=== PATIENT | male | born 1960 | race Caucasian/White ===

== ENCOUNTER → 2018-05-04 09:48 | Outpatient (CLI) | payer BC, SELFPAY ==
[2018-05-04 12:59] LABS: ALT 66 U/L (12-78); AST 77 U/L (15-37); Albumin 3.4 g/dL (3.4-5.0); Alkaline Phosphatase 127 U/L (46-116); Bilirubin, Direct 0.29 mg/dL (0.00-0.20); Bilirubin, Total 0.8 mg/dL (0.2-1.0); Total Protein 6.9 g/dL (6.4-8.2)
== END ==
PROVIDERS: PCP Emergency Medicine; Visit Provider Emergency Medicine
DX: K74.60 Unspecified cirrhosis of liver (principal); R18.8 Other ascites
CPT/HCPCS: 36415; 80076

== ENCOUNTER 2018-06-15 12:17 | Outpatient (CLI) | payer BC, SELFPAY ==
[2018-06-15 13:25] LABS: HCT 23.5 % (40.0-50.0); Mean Corp. HGB Concentration 29.8 g/dL (32.0-36.0); Mean Corpuscular Hemoglobin 21.8 pg (27.0-33.0); Mean Corpuscular Volume 73.2 fL (80-95); Mean Platelet Volume 10.8 fL (8.0-11.0); Platelet Count 140 x1000/uL (130-400); RBC 3.21 m/cumm (4.50-6.00); RBC Distribution Width 17.4 % (11.8-14.1); White Blood Cell Count 3.85 k/cumm (4.4-10.8)
[2018-06-15 13:54] LABS: ALT 47 U/L (12-78); AST 43 U/L (15-37); Albumin 3.3 g/dL (3.4-5.0); Alkaline Phosphatase 116 U/L (46-116); Bilirubin, Direct 0.28 mg/dL (0.00-0.20); Total Protein 6.9 g/dL (6.4-8.2)
[2018-06-15 14:17] LABS: Ferritin 9 ng/mL (8-388)
== END 2018-06-15 12:37 ==
PROVIDERS: PCP Emergency Medicine; Visit Provider Emergency Medicine
DX: D64.9 Anemia, unspecified (principal); K74.60 Unspecified cirrhosis of liver
CPT/HCPCS: 36415; 80076; 85027; 82728

== ENCOUNTER 2018-06-15 14:05 | Observation (INO) | payer BC, SELFPAY ==
[2018-06-15] VITALS (51 sets, daily range): BP systolic 108–154; BP diastolic 52–82; PULSE 62–82; RESP 14–31; TEMP 36.5–37.2; O2SAT 93–99
--- NOTE | 2018-06-15 14:15 | ED.GENADUL_ITS ---
Discharge Plan Disposition Patient Disposition: [facility] INPATIENT Condition: Stable Discharge Details Chief Complaint: GI Bleed Clinical Impression: GI bleeding Primary Care Provider: Mike Whitehead ED Provider: Pearl Moses Home Meds and New Rx's Prescriptions: No Action nadolol 20 mg tablet See Patient Comments PO DAILY RF: 0 multivitamin 1 EACH tablet 1 tab PO DAILY RF: 0 acetaminophen 325 MG tablet 1 - 2 tab PO Q4H PRN RF: 0 cetirizine 10 MG tablet 1 tab PO DAILY PRNRF: 0 aspirin 325 MG tablet 1 tab PO DAILY RF: 0 vitamin B complex 1 EACH tablet 1 tab PO DAILY RF: 0 omega-3 fatty acids-fish oil [Fish Oil] 1 EACH capsule 1 cap PO BID RF: 0 nitroglycerin 0.4 MG tablet, sublingual 1 tab Sublingual ONCE Qty: 20 RF: 3 blood sugar diagnostic [Black HouseTouch Ultra Test] 1 EACH strip 1 ea Miscellaneous DAILY Qty: 90 RF: 3 lancets [OneTouch Delica Lancets] 1 EACH misc 1 ea Miscellaneous DAILY Qty: 90 RF: 3 levothyroxine 150 MCG tablet 150 mcg PO DAILY Qty: 90 RF: 3 atorvastatin 80 MG tablet 1 tab PO DAILY Qty: 90 RF: 3 sertraline 100 MG tablet 100 mg PO DAILY Qty: 90 RF: 3 omeprazole 40 MG capsule,delayed release(DR/EC) 1 cap PO DAILY Qty: 90 RF: 3 metformin 1,000 MG tablet 1,000 mg PO BID Qty: 180 RF: 3 albuterol sulfate [ProAir HFA] 8.5 GM HFA aerosol inhaler 1 - 2 puff Inhalation Q4H PRN Qty: 2 RF: 6 furosemide 20 MG tablet 20 mg PO QAM Qty: 90 RF: 3 Medical Decision Making MDM Narrative Medical decision making narrative: Patient's blood drawn was at noon today, drop in hemoglobin from 9.1 in March to 7.0 today. Patient is symptomatic with positional lightheadedness and chest discomfort with activity. Will type and cross for 2 units of packed red blood cells and administer as soon as available. EKG obtained and reviewed. No acute ST segment changes noted. Will add troponin and basic metabolic panel to today's labs. Will obtain large bore IV. labs all reviewed troponin is negative. patient remains hemodynamically stable with no symptoms at this time. a rectal shows no stool in vault, hemocult was slightly positive for blood. His orthostatic vital signs were negative. This appears to be more of a chronic slow bleed versus an acute bleed but will need endoscopy based on his past history. transfer center at [facility] contacted and patient is declined d/t bed availability. discussed with [facility] transfer center, patient accepted under hospitalist services but bed will not be available until tomorrow. Case discussed with Dr Parson who accepts patient for observation stay pending bed at [facility]. He has received 2 units of PRBC in the emergency department prior to transfer to med/surg. Medical Records Medical records reviewed: Yes I reviewed the patient's medical records. Lab Data Lab results reviewed: Yes I reviewed the patient's lab results. HPI - General Adult General Mode of arrival: ambulatory . Date/Time Provider Initiated Documentation: 06/15/18 14:13 . Limitations to Documentation: no limitations . Information obtained by: patient, RN/MD (Dr. Whitehead), RN notes reviewed and old records reviewed . History of Present Illness described as mild, Quality is described as dull, and is localized to the chest. Patient reports no radiation. and it has been intermittent. No relieving factors improve symptom(s), No exacerbating factors reported . Patient notes chest pain (Exertional chest pressure) and other (Positional lightheadedness). Patient did receive the following treatments prior to arrival, none HPI Narrative: Patient referred to the emergency department by his primary care provider after lab today reveals a hemoglobin of 7. As a known history of portal hypertension and GI bleed. Primary care provider did contact [facility] but there are no beds available for transfer so patient was referred here. Patient had noticed over the past few days he has had some positional lightheadedness and some exertional chest pressure/burning. He states he has intermittent black tarry. Last upper endoscopy was at [facility] in February, shows esophageal varices <5 mm and portal gastropathy Related Data Home Medications Medication Instructions Recorded Confirmed acetaminophen 1 - 2 tab PO Q4H PRN 01/06/13 06/15/18 aspirin 1 tab PO DAILY 01/06/13 06/15/18 cetirizine 1 tab PO DAILY PRN 01/06/13 06/15/18 multivitamin 1 tab PO DAILY 01/06/13 06/15/18 omega-3 fatty acids-fish oil [Fish 1 cap PO BID 01/06/13 06/15/18 Oil] vitamin B complex 1 tab PO DAILY 01/06/13 06/15/18 nitroglycerin 1 tab SUBLINGUAL ONCE #20 tab 12/19/13 blood sugar diagnostic [OneTouch #90 strip 12/01/16 06/15/18 Ultra Test] lancets [OneTouch Delica Lancets] #90 ea 12/01/16 06/15/18 nadolol 20 mg tablet See Label Instructions PO DAILY 06/14/18 06/15/18 Previous Rx's Medication Instructions Recorded levothyroxine 150 mcg PO DAILY #90 tab-cap 08/17/17 albuterol sulfate [ProAir HFA] 1 - 2 puff INHALATION Q4H PRN #2 02/09/18 inhaler atorvastatin 1 tab PO DAILY #90 tab 02/09/18 metformin 1,000 mg PO BID #180 tab-cap 02/09/18 omeprazole 1 cap PO DAILY #90 tab 02/09/18 sertraline 100 mg PO DAILY #90 tab-cap 02/09/18 furosemide 20 mg tablet 20 mg PO QAM #90 tab 05/04/18 Allergies Allergy/AdvReac Type Severity Reaction Status Date / Time niacin Allergy Intermediate Rash Verified 06/15/18 14:29 hydrocodone Allergy Mild Skin Rash Verified 06/15/18 14:29 hydrochlorothiazide AdvReac Severe pancreatiti Verified 06/15/18 14:29 s amlodipine AdvReac Intermediate edema Verified 06/15/18 14:29 ramipril AdvReac Intermediate cough Verified 06/15/18 14:29 Dust Mite AdvReac Intermediate Wheezy Uncoded 06/15/18 14:29 Review of Systems Constitutional Denies fever(s) Eyes Patient Denies change in vision Cardiovascular Denies chest pain at rest, Reports chest pain with activity, Denies syncope, Denies rapid heart rate and Reports lightheadedness Respiratory Denies cough Gastrointestinal Reports heartburn, Denies diarrhea and Reports other (Black and tarry stool) Genitourinary Denies difficulty urinating Musculoskeletal Denies back pain Neurologic Denies syncope PFSH Family History Mother Diabetes Depression Asthma Father Heart disease Hyperlipidemia Brother Depression Heart disease Grandfather No problems noted. Grandfather Depression Grandmother Diabetes Heart disease Grandmother Diabetes Daughter Depression Social History Smoking/Tobacco Use Status: Never Surgical History Colonoscopy - MAC (02/11/18) EGD - MAC (02/11/18) Repair of inguinal hernia Repair of umbilical hernia (07/23/16) Stent placement (~1998) Exam Const General: cooperative, healthy appearing, comfortable, no acute distress and well developed Nutritional Appearance: well nourished Orientation: alert, awake and oriented x3 HENMT Mouth: moist mucous membranes Chest Chest: normal inspection of the chest Cardio Rate: regular rate Rhythm: regular rhythm GI Inspection: distended Palpation: soft Auscultation: normal bowel sounds Skin General skin exam: no rashes or lesions noted Neuro General: alert, awake and oriented x3 Extrem General: normal to inspection, full ROM and normal capillary refill
[2018-06-15] MEDS: diphenhydrAMINE 25 MG CAP PO (14:50)
[2018-06-15] MEDS: Acetaminophen 325 MG TAB 650 MG PO (14:51)
[2018-06-15 14:58] LABS: Anion Gap 9.1 mmol/L (3-11); BUN 13 mg/dL (7-18); CO2 26.9 mmol/L (21.0-32.0); CREATININE 0.85 mg/dL (0.70-1.30); Calcium 8.8 mg/dL (8.5-10.1); Chloride 102 mmol/L (98-107); Glucose 147 mg/dL (70-100); Potassium 3.9 mmol/L (3.5-5.1); Sodium 138 mmol/L (136-145)
[2018-06-15 15:06] LABS: Troponin I < 0.02 ng/mL (0.00-0.06)
--- NOTE | 2018-06-15 16:16 | NUR.NOTE ---
Pt denies pain with transfusion. lungs CTA. Nursing Note:
--- NOTE | 2018-06-15 17:49 | W.PM.HP.N ---
Date of service: 06/15/18 Time of Service: 17:49 Assessment and Plan (1) GI bleed: Current visit: Yes Status: Acute Baseline hemoglobin runs 8-9. Hemoglobin this morning 7. Given the drop in hemoglobin and noted dizziness he is transfused 2 units of packed red cells. Will check hemoglobin again in the a.m. There does not appear to be evidence of a brisk GI bleed but there is concern about his potential gastric antra vascular ectasia seen on upper endoscopy 02/11/2018. He has known portal hypertension and varices. This does not appear to be a variceal bleed clinically. We will continue PPI therapy. Clear liquid diet. Plan is to arrange upper endoscopy for tomorrow, likely at [facility] per discussion in the ER. (2) Diabetes type 2, controlled: Current visit: Yes Status: Chronic We will check fingerstick blood sugars, provide sliding-scale coverage. (3) Portal hypertension: Current visit: Yes Status: Acute Workup to date has been done at [facility], Karan CHRISTIANSON, Dr. Desai, will try to refer back to them once diagnostic studies are available. (4) Anemia: Current visit: Yes Status: Chronic Transfused 2 units packed red cells. Recheck hemoglobin in the a.m. (5) Discharge planning issues: Current visit: Yes Status: Acute He is a full code. Admit observation status. CC: Dr. Whitehead History of Present Illness Chief Complaint: GI bleed/symptomatic anemia Narrative: This is a 57-year-old male that presented to his primary care physician today because of ongoing problems with dizziness and weakness. He describes an episode where his eyes rolled back in his head, he nearly passed out, he went down on one knee. Dr. Whitehead checked a hemoglobin and it was low at 7.0 he referred him to the emergency room. He is recently undergone a workup for portal hypertension and gastric polyps. He had endoscopy by Dr. Moran on 02/11/2018. Both upper and lower endoscopy. He has seen SAMMY Meadows at [facility] gastroenterology. He has been undergoing iron infusions, most recently May 2018. In the emergency room initial evaluation was benign including orthostatic blood pressures which were normal, EKG was normal, troponin was negative. Given the report of symptomatic anemia he was transfused 2 units of packed red cells. Dr. Nelson was consulted regarding upper endoscopy, she declined given his known esophageal varices. Referral was made to [facility] but they had no beds, referral was made to [facility] and they agreed to consider him for endoscopy tomorrow. He is admitted to observation with transfer to [facility] tomorrow. Review of Systems Constitutional Denies excessive sweating, Reports fatigue and Denies weight loss ENT Reports dizziness Cardiovascular Denies chest pain at rest, Denies chest pain with activity, Reports lightheadedness and Reports dyspnea on exertion Respiratory Reports dyspnea on exertion Gastrointestinal Denies abdominal pain and Denies coffee ground emesis Comments: He states he saw a slight amount of blood with wiping in the last 24 hours denies any hematochezia. Musculoskeletal Reports system reviewed and no additional complaints, except as docu Neurologic Reports dizziness Psychiatric Reports system reviewed and no additional complaints, except as docu Endocrine Denies excessive sweating and Reports fatigue PFSH Family History Mother Diabetes Depression Asthma Father Heart disease Hyperlipidemia Brother Depression Heart disease Grandfather No problems noted. Grandfather Depression Grandmother Diabetes Heart disease Grandmother Diabetes Daughter Depression Social History Smoking/Tobacco Use Status: Never Surgical History Colonoscopy - MAC (02/11/18) EGD - MAC (02/11/18) Repair of inguinal hernia Repair of umbilical hernia (07/23/16) Stent placement (~1998) Meds Home Medications Medication Instructions Recorded Confirmed Type acetaminophen 1 - 2 tab PO Q4H PRN 01/06/13 06/15/18 History aspirin 1 tab PO DAILY 01/06/13 06/15/18 History cetirizine 1 tab PO DAILY PRN 01/06/13 06/15/18 History multivitamin 1 tab PO DAILY 01/06/13 06/15/18 History omega-3 fatty acids-fish oil [Fish 1 cap PO BID 01/06/13 06/15/18 History Oil] vitamin B complex 1 tab PO DAILY 01/06/13 06/15/18 History nitroglycerin 1 tab SUBLINGUAL ONCE #20 tab 12/19/13 History blood sugar diagnostic [OneTouch #90 strip 12/01/16 06/15/18 History Ultra Test] lancets [OneTouch Delica Lancets] #90 ea 12/01/16 06/15/18 History nadolol 20 mg tablet See Label Instructions PO DAILY 06/14/18 06/15/18 History Allergies Allergy/AdvReac Type Severity Reaction Status Date / Time niacin Allergy Intermediate Rash Verified 06/15/18 14:29 hydrocodone Allergy Mild Skin Rash Verified 06/15/18 14:29 hydrochlorothiazide AdvReac Severe pancreatiti Verified 06/15/18 14:29 s amlodipine AdvReac Intermediate edema Verified 06/15/18 14:29 ramipril AdvReac Intermediate cough Verified 06/15/18 14:29 Dust Mite AdvReac Intermediate Wheezy Uncoded 06/15/18 14:29 Exam Narrative Exam Narrative: Healthy-appearing, moderately obese male. Const General: comfortable and no acute distress Nutritional Appearance: overweight Neck Neck: normal visual inspection Chest Chest: normal inspection of the chest Resp Effort & Inspection: normal respiratory effort Auscultation: clear to auscultation bilaterally Cardio Rate: regular rate Rhythm: regular rhythm Heart Sounds: no murmurs GI Palpation: soft, no hepatosplenomegaly and nontender Rectal Exam: deferred Other: Stool in the emergency room heme positive Skin General skin exam: no rashes or lesions noted Neuro General: alert, awake and moves all extremities Extrem General: pedal edema (Bilateral lower extremity edema 1+) bilaterally Psych Appearance: grossly normal Mental Status: mental status grossly normal Results Labs : 06/15/18 14:30 Laboratory Results - last 24 hr 06/15/18 06/15/18 06/15/18 14:30 14:30 14:30 Sodium 138 Potassium 3.9 Chloride 102 Carbon Dioxide 26.9 Anion Gap 9.1 BUN 13 Creatinine 0.85 Estimated GFR/1.73 m2 >= 60.00 Glucose 147 H Calcium 8.8 Troponin I < 0.02 Patient ABO/Rh A Positive Antibody Screen Negative Crossmatch See Detail
--- NOTE | 2018-06-15 17:52 | NUR.NOTE ---
Nursing Note: 1750 Male pt 57 years old alert,aware,oriented x 3 arrived via stretcher with second unit of PRBC running from ED ,,denies any discomfort /no sob to room 211
[2018-06-15] MEDS: Normal Saline Flush 10 ML SYR IVP (19:27)
[2018-06-16 04:27] VITALS: BP 128/77; PULSE 63; RESP 18; TEMP 36.2; O2SAT 97
[2018-06-16 06:35] LABS: Abs Immature Grans 0.01 k/cumm (0.0-0.09); Absolute Basophil Count 0.02 k/cumm (0.0-0.2); Absolute Eosinophil Count 0.14 k/cumm (0.0-0.7); Absolute Lymphocyte Count 0.92 k/cumm (1.2-3.4); Absolute Monocyte Count 0.31 k/cumm (0.11-0.7); Absolute Neutrophil Count 1.88 k/cumm (1.2-6.7); Basophils % 0.6; Eosinophils % 4.3; HCT 27.1 % (40.0-50.0); HGB 8.2 g/dL (13.5-17.5); Immature Grans % 0.3; Mean Corp. HGB Concentration 30.3 g/dL (32.0-36.0); Mean Corpuscular Hemoglobin 22.6 pg (27.0-33.0); Mean Corpuscular Volume 74.7 fL (80-95); Mean Platelet Volume 10.6 fL (8.0-11.0); Monocytes % 9.5; Neutrophils % 57.3; Platelet Count 134 x1000/uL (130-400); RBC 3.63 m/cumm (4.50-6.00); RBC Distribution Width 18.6 % (11.8-14.1); White Blood Cell Count 3.28 k/cumm (4.4-10.8)
[2018-06-16 06:45] LABS: Anion Gap 8.4 mmol/L (3-11); BUN 12 mg/dL (7-18); CO2 27.6 mmol/L (21.0-32.0); CREATININE 0.76 mg/dL (0.70-1.30); Calcium 8.4 mg/dL (8.5-10.1); Chloride 105 mmol/L (98-107); Glucose 112 mg/dL (70-100); Potassium 3.9 mmol/L (3.5-5.1); Sodium 141 mmol/L (136-145)
[2018-06-16 07:10] LABS: INR 1.2 (1.0-3.5); PTT Activated 27.6 sec (21.0-31.4); Prothrombin Time 11.5 sec (9.3-10.8)
[2018-06-16] MEDS: Levothyroxine 150 MCG TAB PO (07:19)
[2018-06-16 07:23] LABS: Anisocytosis 2+; Diff Comment RBC Morph Reviewed; Hypochromasia 1+; Macrocytosis 1+; Microcytosis 2+; Ovalocytes 2+; Schistocytes 1+
[2018-06-16 07:24] LABS: Poikilocytes 2+
[2018-06-16 07:59] VITALS: BP 125/78; PULSE 56; RESP 19; TEMP 36.3; O2SAT 96
--- NOTE | 2018-06-16 08:09 | PDOC.CMIN ---
- If Service Date Differs Date of service: 06/16/18 Time of Service: 08:09 Care Management Initial Assess REASON FOR HOSPITALIZATION:: GI bleed PAST MEDICAL HISTORY/PAST SURGICAL HISTORY:: Portal hypertension, ARIN, DM, hyperlipidemia, HTN, portal hypertension, CAD, anemia, hypothyroid. Surgical hx: stent placement, hernia repair, EGD, colonoscopy PREVIOUS FUNCTIONAL STATUS/SOCIAL/FAMILY SUPPORTS:: Adriano is a 57 year old male that lives alone in [place], [place]. He is an plumbing engineer, at [email or web address] in [place], He has one daughter Kenna who is his primary support and three grandchildren. He is seperated from his spouse. He is independent with ADL's, and transportation. He provides support to his daughter with her children and his grandson who is disabled. CURRENT FUNCTIONAL STATUS:: Adriano is sitting up in the chair he makes good eye contact. He states that he was going to drive to [facility] however there was not a bed available so he was sent to [facility] by primary care. He states his only symptom of anemia was dizzyness when he stood up or sat down. He does report some chest buring about a week ago when he was walking. He would like to be transfered to [facility] when there is a bed. ADVANCE DIRECTIVES:: None on file at [facility]- Pt provided the packet to review Has patient been provided with information about the portal?: Yes Did the patient sign up for the portal?: No (Provided instruction) CODE STATUS:: Full Code INSURANCE COVERAGE / FINANCIAL ISSUES:: BCBS CURRENT HOME/COMMUNITY SERVICES/EQUIPMENT:: None PRIMARY CARE PHYSICIAN:: POTENTIAL DISCHARGE NEEDS:: Anticipate Adriano will be transfered to [facility] once a bed is available. He will need to follow up with whom he has a good relationship with after discharge. PATIENT/FAMILY EDUCATION NEEDS:: Education r/t plan of care and follow up plan of care. ANTICIPATED BARRIERS TO DISCHARGE:: Awaiting bed availability at [facility]. TRANSPORTATION:: Via ambulance once bed is available. Adriano's car is here at [facility] as he did drive himself to the hospital. PLAN:: Adriano remains an observation pt at [facility]. Anticipate he will be transfered to another facility. His daughter is aware of the pending transfer. Adriano denies any addtional needs at this time. He would like to review infomation related to advance directives and my portal. CM provided information and advance directive packet.
--- NOTE | 2018-06-16 08:19 | INITIAL_ITS ---
- If Service Date Differs Date of service: 06/16/18 Time of Service: 08:09 Care Management Initial Assess REASON FOR HOSPITALIZATION:: GI bleed PAST MEDICAL HISTORY/PAST SURGICAL HISTORY:: Portal hypertension, ARIN, DM, hyperlipidemia, HTN, portal hypertension, CAD, anemia, hypothyroid. Surgical hx : stent placement, hernia repair, EGD, colonoscopy PREVIOUS FUNCTIONAL STATUS/SOCIAL/FAMILY SUPPORTS:: Adriano is a 57 year old male that lives alone in [place], [place]. He is an software deployment engineer, at [employer] in [place], He has one daughter Kenna who is his primary support and three grandchildren. He is seperated from his spouse. He is independent with ADL 's, and transportation. He provides support to his daughter with her children and his grandson who is disabled. CURRENT FUNCTIONAL STATUS:: Adriano is sitting up in the chair he makes good eye contact. He states that he was going to drive to [facility] however there was not a bed available so he was sent to [facility] by primary care. He states his only symptom of anemia was dizzyness when he stood up or sat down. He does report some chest buring about a week ago when he was walking. He would like to be transfered to [facility] when there is a bed. ADVANCE DIRECTIVES:: None on file at [facility]- Pt provided the packet to review Has patient been provided with information about the portal?: Yes Did the patient sign up for the portal?: No (Provided instruction) CODE STATUS:: Full Code INSURANCE COVERAGE / FINANCIAL ISSUES:: BCBS CURRENT HOME/COMMUNITY SERVICES/EQUIPMENT:: None PRIMARY CARE PHYSICIAN:: POTENTIAL DISCHARGE NEEDS:: Anticipate Adriano will be transfered to [facility] once a bed is available. He will need to follow up with whom he has a good relationship with after discharge. PATIENT/FAMILY EDUCATION NEEDS:: Education r/t plan of care and follow up plan of care. ANTICIPATED BARRIERS TO DISCHARGE:: Awaiting bed availability at [facility]. TRANSPORTATION:: Via ambulance once bed is available. Adriano's car is here at [facility] as he did drive himself to the hospital. PLAN:: Adriano remains an observation pt at [facility]. Anticipate he will be transfered to another facility. His daughter is aware of the pending transfer. Adriano denies any addtional needs at this time. He would like to review infomation related to advance directives and my portal. CM provided information and advance directive packet.
[2018-06-16] MEDS: Normal Saline Flush 10 ML SYR IVP (08:22)
[2018-06-16] MEDS: Omeprazole 20 MG CAPCR 40 MG PO (08:23)
[2018-06-16] MEDS: Sertraline 50 MG TAB 100 MG PO (08:23)
[2018-06-16] MEDS: Normal Saline 1,000 ML 125 ML IV (08:24)
[2018-06-16 11:34] VITALS: BP 138/86; PULSE 60; RESP 20; TEMP 36.9; O2SAT 96
[2018-06-16] MEDS: Nadolol 40 MG TAB 20 MG PO (12:45)
[2018-06-16] MEDS: IRON SUCROSE COMPLEX 200 MG in Normal Saline 100 ML 110 MG IVPB (14:10)
--- NOTE | 2018-06-16 14:36 | PHARADMIT ---
Admission Pharmacy Clinical Review GI BLEED Code Status Full Code Current Weight 121.9 kg Renally Cleared and Narrow Therapeutic Index Meds CRCL ~100ML/MIN QTc Value / Action Taken BP Control, Fever 138/86 AFEBRILE Electrolytes reviewed ok DVT Prophylaxis no Opiate Usage / Scheduled Bowel Regimen Ordered no/no Plt/SCr for Heparin / Enoxaparin 134/0.76 INR for Warfarin 1.2 H/H stable, WBC/Bands 8.2/27.1 (after transfusion) wbc 3.28 Antibiotic appropriateness na Cultures and Sensitivities na Surgical ABX d/c within 24 hr na DM control / Insulin Dosing FS 113, metformin Heart Failure (Check EF%) (ROBERT's, B-Block, Diuretics) IV to PO Switch IVF Home Meds Reviewed Home Meds Not Ordered aspirin 1 tab PO DAILY 01/06/13 [History Confirmed 06/15/18] multivitamin 1 tab PO DAILY 01/06/13 [History Confirmed 06/15/18] omega-3 fatty acids-fish oil [Fish Oil] 1 cap PO BID 01/06/13 vitamin B complex 1 tab PO DAILY 01/06/13 [History Confirmed 06/15/18] Comments
--- NOTE | 2018-06-16 15:23 | W.PM.DS.N ---
Date of service: 06/16/18 Time of Service: 15:23 DS: Diagnosis Discharge Diagnosis (1) GI bleed: Status: Acute (2) Diabetes type 2, controlled: Status: Chronic (3) Portal hypertension: Status: Acute (4) Anemia: Status: Chronic (5) Discharge planning issues: Status: Acute Discharge Plan Disposition Patient Disposition: HOME Condition: Stable Discharge Details Reason For Visit: GI BLEED Admit Date/Time: 06/15/18 16:55 Admit Provider: Joe Parson Attending Provider: Joe Parson Primary Care Provider: Mike Whitehead [place] [facility] Course: Theodore Mc is a 57-year-old male that presented to his primary care physician yesterday with reports of ongoing problems with dizziness and weakness. He describes an episode where his eyes rolled back in his head, he nearly passed out, he went down on one knee. Dr. Whitehead checked a hemoglobin and it was low at 7.0 he referred him to the emergency room. He is recently undergone a workup for portal hypertension and gastric polyps. He had upper and lower endoscopy by Dr. Moran on 02/11/2018. He had a follow up EGD at [facility] which did not show GAVE, they noted chronic blood loss as he has portal hypertension gastropathy. He has seen SAMMY Meadows at [facility] gastroenterology. He has been undergoing iron infusions, most recently May 2018. In the emergency room initial evaluation was benign including orthostatic blood pressures which were normal, EKG was normal, troponin was negative. Given the report of symptomatic anemia he was transfused 2 units of packed red cells. Dr. Nelson was consulted regarding upper endoscopy, she declined given his known esophageal varices. Referral was made to [facility] but they had no beds, referral was made to [facility] and they agreed to consider him for endoscopy. However, we were able to speak to GI at [facility] today, where his is followed. GI did not feel that there was any utility to doing another EGD as they were already aware that he was chronically bleeding and has been receiving supportive treatments. They recommended that he continue with Venofer infusions, maximize Nadolol dosing, monitor blood counts with transfusions as needed. He had only received one venofer infusion prior to his admission. He did receive another Iron infusion while he was here in the hospital. He should continue to receive IV Iron as an outpatient. At the time of his discharge, his hgb had improved to 8.2 and hct to 27.1. He will need close follow up of his anemia. We will plan to have a Hemoglobin and hematocrit drawn early next week. He will follow up with GI and with his PCP. He is adivsed to return to the ED if her has recurrence of symptoms. Home Meds and New Rx's Prescriptions: Continue nadolol 20 mg tablet See Patient Comments PO DAILY RF: 0 multivitamin 1 EACH tablet 1 tab PO DAILY RF: 0 acetaminophen 325 MG tablet 1 - 2 tab PO Q4H PRN RF: 0 cetirizine 10 MG tablet 1 tab PO DAILY PRNRF: 0 aspirin 325 MG tablet 1 tab PO DAILY RF: 0 vitamin B complex 1 EACH tablet 1 tab PO DAILY RF: 0 omega-3 fatty acids-fish oil [Fish Oil] 1 EACH capsule 1 cap PO BID RF: 0 nitroglycerin 0.4 MG tablet, sublingual 1 tab Sublingual ONCE Qty: 20 RF: 3 blood sugar diagnostic [OneTouch Ultra Test] 1 EACH strip 1 ea Miscellaneous DAILY Qty: 90 RF: 3 lancets [OneTouch Delica Lancets] 1 EACH misc 1 ea Miscellaneous DAILY Qty: 90 RF: 3 levothyroxine 150 MCG tablet 150 mcg PO DAILY Qty: 90 RF: 3 atorvastatin 80 MG tablet 1 tab PO DAILY Qty: 90 RF: 3 sertraline 100 MG tablet 100 mg PO DAILY Qty: 90 RF: 3 omeprazole 40 MG capsule,delayed release(DR/EC) 1 cap PO DAILY Qty: 90 RF: 3 metformin 1,000 MG tablet 1,000 mg PO BID Qty: 180 RF: 3 albuterol sulfate [ProAir HFA] 8.5 GM HFA aerosol inhaler 1 - 2 puff Inhalation Q4H PRN Qty: 2 RF: 6 furosemide 20 MG tablet 20 mg PO QAM Qty: 90 RF: 3 Discharge Instructions Instructions: Gastrointestinal Bleeding (DC), Portal Hypertension (DC), Anemia (DC) Additional Instructions: The infusion room will call you tomorrow to set up an appointment for your next iron infusion. Follow up with your PCP and with GI at [facility]. If you feel dizzy, lightheaded, or faint, return to the ED. You will need to have labs drawn next week, Wednesday to recheck your blood counts. Stand Alone Forms: Nursing Discharge Form Referrals: Mike Whitehead DO [Primary Care Provider] - 06/17/18 4:00 pm Karan Landrum [ [facility] STAFF PHYSICIAN] - 06/20/18 2:30 pm Activity:: Activity as Tolerated Equipment/Supplies:: No Equipment Needed Diet:: Carbohydrate counting. Discharge Orders Discharge Orders: Discharge Order (Routine); Ordered 06/16/18 Ordered By: Abbie Ward DS: Data Vitals/I&O Vitals and I&O: Vital Signs Temp 36.9 C 06/16/18 11:34 Pulse 60 06/16/18 11:34 Resp 20 06/16/18 11:34 BP 138/86 06/16/18 11:34 Pulse Ox 96 06/16/18 11:34 Intake & Output 06/15/18 06/16/18 06/16/18 23:59 11:59 23:59 Intake Total 745 / 745 640 / 640 Output Total 450 / 450 500 / 500 300 / 300 Balance 295 / 295 -490 / -490 340 / 340 Weight 121.9 kg Intake: IV Oral 0 / 0 640 / 640 Blood Product 745 / 745 Rbc Leuko Reduced Unit 365 / 365 [id number] Rbc Leuko Reduced Unit 380 / 380 [id number] Output: Urine 450 / 450 500 / 500 300 / 300 Other: Urine Color Yellow Dark Isaura Yellow Urine Appearance Clear Clear Clear Urine Odor None Normal Normal Comment pt walked to toilet but used the urinal to void. Stool Occult Blood Positive Stool Size Smear Emesis Description None Voiding Methods Urinal Urinal Toilet Urinal Labs on day of discharge: Labs from last 24 hours 06/16/18 06/16/18 06/16/18 06:20 06:20 06:20 WBC 3.28 L RBC 3.63 L Hgb 8.2 L Hct 27.1 L MCV 74.7 L MCH 22.6 L MCHC 30.3 L RDW 18.6 H Plt Count 134 MPV 10.6 Immature Gran % 0.3 Neutrophils % 57.3 Lymphocytes % 28.0 Monocytes % 9.5 Eosinophils % 4.3 Basophils % 0.6 Absolute Neutrophils 1.88 Absolute Lymphocytes 0.92 L Absolute Monocytes 0.31 Absolute Eosinophils 0.14 Absolute Basophils 0.02 Differential Comment Rbc morph reviewed RBC Morphology See below Hypochromasia 1+ Poikilocytosis 2+ Anisocytosis 2+ Microcytosis 2+ Macrocytosis 1+ Ovalocytes 2+ Schistocytes 1+ PT 11.5 H INR 1.2 APTT 27.6 Sodium 141 Potassium 3.9 Chloride 105 Carbon Dioxide 27.6 Anion Gap 8.4 BUN 12 Creatinine 0.76 Estimated GFR/1.73 m2 >= 60.00 Glucose 112 H Calcium 8.4 L Patient ABO/Rh Antibody Screen Crossmatch 06/15/18 14:30 WBC RBC Hgb Hct MCV MCH MCHC RDW Plt Count MPV Immature Gran % Neutrophils % Lymphocytes % Monocytes % Eosinophils % Basophils % Absolute Neutrophils Absolute Lymphocytes Absolute Monocytes Absolute Eosinophils Absolute Basophils Differential Comment RBC Morphology Hypochromasia Poikilocytosis Anisocytosis Microcytosis Macrocytosis Ovalocytes Schistocytes PT INR APTT Sodium Potassium Chloride Carbon Dioxide Anion Gap BUN Creatinine Estimated GFR/1.73 m2 Glucose Calcium Patient ABO/Rh A Positive Antibody Screen Negative Crossmatch See Detail
--- NOTE | 2018-06-16 15:32 | DSE_ITS ---
Date of service: 06/16/18 Time of Service: 15:23 DS: Diagnosis Discharge Diagnosis (1) GI bleed: Status: Acute (2) Diabetes type 2, controlled: Status: Chronic (3) Portal hypertension: Status: Acute (4) Anemia: Status: Chronic (5) Discharge planning issues: Status: Acute Discharge Plan Disposition Patient Disposition: HOME Condition: Stable Discharge Details Reason For Visit: GI BLEED Admit Date/Time: 06/15/18 16:55 Admit Provider: Joe Parson Attending Provider: Joe Parson Primary Care Provider: Mike Whitehead [facility] Course: Theodore Mc is a 57-year-old male that presented to his primary care physician yesterday with reports of ongoing problems with dizziness and weakness. He describes an episode where his eyes rolled back in his head, he nearly passed out, he went down on one knee. Dr. Whitehead checked a hemoglobin and it was low at 7.0 he referred him to the emergency room. He is recently undergone a workup for portal hypertension and gastric polyps. He had upper and lower endoscopy by Dr. Moran on 02/11/2018. He had a follow up E[place] [facility] which did not show GAVE, they noted chronic blood loss as he has portal hypertension gastropathy. He has seen SAMMY Meadows at [facility] gastroenterology. He has been undergoing iron infusions, most recently May 2018. In the emergency room initial evaluation was benign including orthostatic blood pressures which were normal, EKG was normal, troponin was negative. Given the report of symptomatic anemia he was transfused 2 units of packed red cells. Dr. Nelson was consulted regarding upper endoscopy, she declined given his known esophageal varices. Referral was made to [facility] but they had no beds, referral was made to [facility] and they agreed to consider him for endoscopy. However , we were able to speak to GI at [facility] today, where his is followed. GI did not feel that there was any utility to doing another EGD as they were already aware that he was chronically bleeding and has been receiving supportive treatments. They recommended that he continue with Venofer infusions, maximize Nadolol dosing, monitor blood counts with transfusions as needed. He had only received one venofer infusion prior to his admission. He did receive another Iron infusion while he was here in the hospital. He should continue to receive IV Iron as an outpatient. At the time of his discharge, his hgb had improved to 8.2 and hct to 27.1. He will need close follow up of his anemia. We will plan to have a Hemoglobin and hematocrit drawn early next week. He will follow up with GI and with his PCP. He is adivsed to return to the ED if her has recurrence of symptoms. Home Meds and New Rx's Prescriptions: Continue nadolol 20 mg tablet See Patient Comments PO DAILY RF: 0 multivitamin 1 EACH tablet 1 tab PO DAILY RF: 0 acetaminophen 325 MG tablet 1 - 2 tab PO Q4H PRN RF: 0 cetirizine 10 MG tablet 1 tab PO DAILY PRNRF: 0 aspirin 325 MG tablet 1 tab PO DAILY RF: 0 vitamin B complex 1 EACH tablet 1 tab PO DAILY RF: 0 omega-3 fatty acids-fish oil [Fish Oil] 1 EACH capsule 1 cap PO BID RF: 0 nitroglycerin 0.4 MG tablet, sublingual 1 tab Sublingual ONCE Qty: 20 RF: 3 blood sugar diagnostic [OneTouch Ultra Test] 1 EACH strip 1 ea Miscellaneous DAILY Qty: 90 RF: 3 lancets [OneTouch Delica Lancets] 1 EACH misc 1 ea Miscellaneous DAILY Qty: 90 RF: 3 levothyroxine 150 MCG tablet 150 mcg PO DAILY Qty: 90 RF: 3 atorvastatin 80 MG tablet 1 tab PO DAILY Qty: 90 RF: 3 sertraline 100 MG tablet 100 mg PO DAILY Qty: 90 RF: 3 omeprazole 40 MG capsule,delayed release(DR/EC) 1 cap PO DAILY Qty: 90 RF: 3 metformin 1,000 MG tablet 1,000 mg PO BID Qty: 180 RF: 3 albuterol sulfate [ProAir HFA] 8.5 GM HFA aerosol inhaler 1 - 2 puff Inhalation Q4H PRN Qty: 2 RF: 6 furosemide 20 MG tablet 20 mg PO QAM Qty: 90 RF: 3 Discharge Instructions Instructions: Gastrointestinal Bleeding (DC), Portal Hypertension (DC), Anemia (DC) Additional Instructions: The infusion room will call you tomorrow to set up an appointment for your next iron infusion. Follow up with your PCP and with GI at [facility]. If you feel dizzy, lightheaded, or faint, return to the ED. You will need to have labs drawn next week, Wednesday to recheck your blood counts. Stand Alone Forms: Nursing Discharge Form Referrals: Mike Whitehead DO [Primary Care Provider] - 06/17/18 4:00 pm Karan Landrum [ NON-[facility] STAFF PHYSICIAN] - 06/20/18 2:30 pm Activity:: Activity as Tolerated Equipment/Supplies:: No Equipment Needed Diet:: Carbohydrate counting. Discharge Orders Discharge Orders: Discharge Order (Routine); Ordered 06/16/18 Ordered By: Abbie Ward DS: Data Vitals/I&O Vitals and I&O: Vital Signs Temp 36.9 C 06/16/18 11:34 Pulse 60 06/16/18 11:34 Resp 20 06/16/18 11:34 BP 138/86 06/16/18 11:34 Pulse Ox 96 06/16/18 11:34 Intake & Output 06/15/18 06/16/18 06/16/18 23:59 11:59 23:59 Intake Total 745 / 745 640 / 640 Output Total 450 / 450 500 / 500 300 / 300 Balance 295 / 295 -490 / -490 340 / 340 Weight 121.9 kg Intake: IV Oral 0 / 0 640 / 640 Blood Product 745 / 745 Rbc Leuko Reduced Unit 365 / 365 [id number] Rbc Leuko Reduced Unit 380 / 380 [id number] Output: Urine 450 / 450 500 / 500 300 / 300 Other: Urine Color Yellow Dark Isaura Yellow Urine Appearance Clear Clear Clear Urine Odor None Normal Normal Comment pt walked to toilet but used the urinal to void. Stool Occult Blood Positive Stool Size Smear Emesis Description None Voiding Methods Urinal Urinal Toilet Urinal Labs on day of discharge: Labs from last 24 hours 06/16/18 06/16/18 06/16/18 06:20 06:20 06:20 WBC 3.28 L RBC 3.63 L Hgb 8.2 L Hct 27.1 L MCV 74.7 L MCH 22.6 L MCHC 30.3 L RDW 18.6 H Plt Count 134 MPV 10.6 Immature Gran % 0.3 Neutrophils % 57.3 Lymphocytes % 28.0 Monocytes % 9.5 Eosinophils % 4.3 Basophils % 0.6 Absolute Neutrophils 1.88 Absolute Lymphocytes 0.92 L Absolute Monocytes 0.31 Absolute Eosinophils 0.14 Absolute Basophils 0.02 Differential Comment Rbc morph reviewed RBC Morphology See below Hypochromasia 1+ Poikilocytosis 2+ Anisocytosis 2+ Microcytosis 2+ Macrocytosis 1+ Ovalocytes 2+ Schistocytes 1+ PT 11.5 H INR 1.2 APTT 27.6 Sodium 141 Potassium 3.9 Chloride 105 Carbon Dioxide 27.6 Anion Gap 8.4 BUN 12 Creatinine 0.76 Estimated GFR/1.73 m2 >= 60.00 Glucose 112 H Calcium 8.4 L Patient ABO/Rh Antibody Screen Crossmatch 06/15/18 14:30 WBC RBC Hgb Hct MCV MCH MCHC RDW Plt Count MPV Immature Gran % Neutrophils % Lymphocytes % Monocytes % Eosinophils % Basophils % Absolute Neutrophils Absolute Lymphocytes Absolute Monocytes Absolute Eosinophils Absolute Basophils Differential Comment RBC Morphology Hypochromasia Poikilocytosis Anisocytosis Microcytosis Macrocytosis Ovalocytes Schistocytes PT INR APTT Sodium Potassium Chloride Carbon Dioxide Anion Gap BUN Creatinine Estimated GFR/1.73 m2 Glucose Calcium Patient ABO/Rh A Positive Antibody Screen Negative Crossmatch See Detail
== END 2018-06-16 16:31 | disposition home or self-care (01) ==
LOC: ER 17:31 → MS 18:03
PROVIDERS: Admitting Provider Family Medicine; Emergency Provider Nurse Practitioner Acute Care; PCP Emergency Medicine; Visit Provider Family Medicine
DX: K92.2 Gastrointestinal hemorrhage, unspecified (principal); E11.9 Type 2 diabetes mellitus without complications; K76.6 Portal hypertension; K31.89 Other diseases of stomach and duodenum; D50.0 Iron deficiency anemia secondary to blood loss (chronic); I85.00 Esophageal varices without bleeding
CPT/HCPCS: 36415; 36430; 80048; 86850; 86900; 86901; 86920; 99219; 99239; 99285; 84484; 85025; 85610; 85730; 99217; 99284; G0378; J1756; P9016

== ENCOUNTER 2018-06-20 11:47 | Outpatient (CLI) | payer BC, SELFPAY ==
[2018-06-20 12:14] LABS: HCT 29.1 % (40.0-50.0); HGB 8.9 g/dL (13.5-17.5)
== END 2018-06-20 12:07 ==
PROVIDERS: PCP Emergency Medicine; Visit Provider Nurse Practitioner
DX: K92.2 Gastrointestinal hemorrhage, unspecified (principal); D64.9 Anemia, unspecified
CPT/HCPCS: 36415; 85014; 85018

== ENCOUNTER 2018-06-24 15:25 | Outpatient (CLI) | payer BC, SELFPAY ==
[2018-06-24 15:51] LABS: HCT 28.7 % (40.0-50.0); HGB 8.8 g/dL (13.5-17.5); Mean Corp. HGB Concentration 30.7 g/dL (32.0-36.0); Mean Corpuscular Hemoglobin 23.6 pg (27.0-33.0); Mean Corpuscular Volume 76.9 fL (80-95); Mean Platelet Volume 10.4 fL (8.0-11.0); Platelet Count 147 x1000/uL (130-400); RBC 3.73 m/cumm (4.50-6.00); RBC Distribution Width 21.5 % (11.8-14.1); White Blood Cell Count 4.29 k/cumm (4.4-10.8)
[2018-06-24 17:02] LABS: ALT 65 U/L (12-78); AST 71 U/L (15-37); Albumin 3.4 g/dL (3.4-5.0); Alkaline Phosphatase 118 U/L (46-116); Bilirubin, Direct 0.28 mg/dL (0.00-0.20); Bilirubin, Total 0.9 mg/dL (0.2-1.0); Total Protein 6.7 g/dL (6.4-8.2)
[2018-06-24 17:59] LABS: Ferritin 54 ng/mL (8-388)
== END 2018-06-24 15:45 ==
PROVIDERS: PCP Emergency Medicine; Visit Provider Emergency Medicine
DX: D64.9 Anemia, unspecified (principal); K74.60 Unspecified cirrhosis of liver
CPT/HCPCS: 36415; 80076; 85027; 82728

== ENCOUNTER 2018-06-29 01:40 | Outpatient (RCR) | payer BC, SELFPAY ==
[2018-06-29] MEDS: IRON SUCROSE COMPLEX 200 MG in Normal Saline 100 ML 110 MG IVPB (07:23)
[2018-06-29] MEDS: Normal Saline Flush 10 ML SYR IVP (07:27)
== END 2018-07-03 23:59 | disposition home or self-care (01) ==
LOC: INF 01:40
PROVIDERS: PCP Emergency Medicine; Visit Provider Nurse Practitioner
DX: D50.0 Iron deficiency anemia secondary to blood loss (chronic) (principal)
CPT/HCPCS: 96365; J1756

== ENCOUNTER 2018-07-06 15:46 | Outpatient (CLI) | payer BC, SELFPAY ==
[2018-07-06 16:26] LABS: Abs Immature Grans 0.01 k/cumm (0.0-0.09); Absolute Basophil Count 0.04 k/cumm (0.0-0.2); Absolute Eosinophil Count 0.15 k/cumm (0.0-0.7); Absolute Lymphocyte Count 0.92 k/cumm (1.2-3.4); Absolute Monocyte Count 0.35 k/cumm (0.11-0.7); Basophils % 0.9; Eosinophils % 3.5; HCT 30.2 % (40.0-50.0); HGB 9.4 g/dL (13.5-17.5); Immature Grans % 0.2; Lymphocytes % 21.6; Mean Corp. HGB Concentration 31.1 g/dL (32.0-36.0); Mean Corpuscular Hemoglobin 24.4 pg (27.0-33.0); Mean Corpuscular Volume 78.2 fL (80-95); Mean Platelet Volume 10.1 fL (8.0-11.0); Monocytes % 8.2; Neutrophils % 65.6; Platelet Count 140 x1000/uL (130-400); RBC 3.86 m/cumm (4.50-6.00); RBC Distribution Width 23.7 % (11.8-14.1); White Blood Cell Count 4.25 k/cumm (4.4-10.8)
[2018-07-06 17:20] LABS: Absolute Neutrophil Count 2.79 k/cumm (1.2-6.7); Diff Comment Diff Reviewed
[2018-07-06 17:21] LABS: Anisocytosis 1+; Iron 28 ug/dL (50-175); Total Iron Binding Capacity 421 ug/dL (250-450); Transferrin Sat 7 % (20-55)
[2018-07-06 17:29] LABS: ALT 59 U/L (12-78); AST 55 U/L (15-37); Albumin 3.5 g/dL (3.4-5.0); Alkaline Phosphatase 129 U/L (46-116); Anion Gap 7.1 mmol/L (3-11); BUN 13 mg/dL (7-18); CO2 26.9 mmol/L (21.0-32.0); CREATININE 0.93 mg/dL (0.70-1.30); Calcium 8.5 mg/dL (8.5-10.1); Chloride 103 mmol/L (98-107); Ferritin 76 ng/mL (8-388); Glucose 115 mg/dL (70-100); Potassium 3.9 mmol/L (3.5-5.1); Sodium 137 mmol/L (136-145); Total Protein 7.1 g/dL (6.4-8.2)
== END 2018-07-06 16:06 ==
PROVIDERS: PCP Emergency Medicine; Visit Provider Emergency Medicine
DX: E11.9 Type 2 diabetes mellitus without complications (principal)
CPT/HCPCS: 36415; 80053; 82728; 83036; 83540; 83550; 85025

== ENCOUNTER 2018-08-10 07:00 | Outpatient (CLI) | payer BC, SELFPAY ==
[2018-08-10 07:46] LABS: Hemoglobin A1C 5.8 % (4.5-6.2)
[2018-08-10 08:18] LABS: ALT 53 U/L (12-78); AST 43 U/L (15-37); Albumin 3.5 g/dL (3.4-5.0); Alkaline Phosphatase 110 U/L (46-116); Anion Gap 8.1 mmol/L (3-11); BUN 14 mg/dL (7-18); Bilirubin, Total 0.8 mg/dL (0.2-1.0); CO2 27.9 mmol/L (21.0-32.0); CREATININE 0.86 mg/dL (0.70-1.30); Calcium 8.8 mg/dL (8.5-10.1); Chloride 104 mmol/L (98-107); Cholesterol 149 mg/dL (50-200); Ferritin 20 ng/mL (8-388); Glucose 130 mg/dL (70-100); HDL Cholesterol 39 mg/dL (40-60); LDL CHOLESTEROL 85 mg/dL (<100); Potassium 4.2 mmol/L (3.5-5.1); Sodium 140 mmol/L (136-145); TSH 1.63 uIU/mL (0.358-3.74); Total Protein 6.9 g/dL (6.4-8.2); Triglyceride 156 mg/dL (30-150)
== END 2018-08-10 07:20 ==
PROVIDERS: PCP Emergency Medicine; Visit Provider Emergency Medicine
DX: I10 Essential (primary) hypertension (principal); E78.5 Hyperlipidemia, unspecified; E03.9 Hypothyroidism, unspecified; E11.9 Type 2 diabetes mellitus without complications; I85.00 Esophageal varices without bleeding; K74.60 Unspecified cirrhosis of liver; R18.8 Other ascites; D64.9 Anemia, unspecified; K92.2 Gastrointestinal hemorrhage, unspecified; K76.6 Portal hypertension
CPT/HCPCS: 36415; 80053; 80061; 83721; 82728; 83036; 84443

== ENCOUNTER 2019-01-02 11:43 | Outpatient (CLI) | payer BC, SELFPAY ==
[2019-01-02 11:59] LABS: Absolute Basophil Count 0.03 k/cumm (0.0-0.2); Absolute Eosinophil Count 0.23 k/cumm (0.0-0.7); Absolute Monocyte Count 0.32 k/cumm (0.11-0.7); Absolute Neutrophil Count 2.95 k/cumm (1.2-6.7); Basophils % 0.6; Eosinophils % 4.8; HCT 36.1 % (40.0-50.0); HGB 12.2 g/dL (13.5-17.5); Lymphocytes % 26.9; Mean Corp. HGB Concentration 33.8 g/dL (32.0-36.0); Mean Corpuscular Hemoglobin 30.6 pg (27.0-33.0); Mean Corpuscular Volume 90.5 fL (80-95); Mean Platelet Volume 9.7 fL (8.0-11.0); Monocytes % 6.6; Neutrophils % 61.1; Platelet Count 124 x1000/uL (130-400); RBC 3.99 m/cumm (4.50-6.00); RBC Distribution Width 14.6 % (11.8-14.1); White Blood Cell Count 4.83 k/cumm (4.4-10.8)
[2019-01-02 12:28] LABS: Ferritin 44 ng/mL (8-388)
== END 2019-01-02 12:03 ==
PROVIDERS: PCP Emergency Medicine; Visit Provider Internal Medicine Hematology & Oncology
DX: D50.0 Iron deficiency anemia secondary to blood loss (chronic) (principal)
CPT/HCPCS: 36415; 82728; 85025

== ENCOUNTER 2019-03-29 07:11 | Outpatient (CLI) | payer BC, SELFPAY ==
[2019-03-29 07:36] LABS: Absolute Basophil Count 0.03 k/cumm (0.0-0.2); Absolute Eosinophil Count 0.26 k/cumm (0.0-0.7); Absolute Lymphocyte Count 1.22 k/cumm (1.2-3.4); Absolute Monocyte Count 0.54 k/cumm (0.11-0.7); Absolute Neutrophil Count 3.29 k/cumm (1.2-6.7); Basophils % 0.6; Eosinophils % 4.9; HGB 12.6 g/dL (13.5-17.5); Lymphocytes % 22.8; Mean Corp. HGB Concentration 34.1 g/dL (32.0-36.0); Mean Corpuscular Hemoglobin 29.8 pg (27.0-33.0); Mean Corpuscular Volume 87.5 fL (80-95); Mean Platelet Volume 10.2 fL (8.0-11.0); Monocytes % 10.1; Neutrophils % 61.6; Platelet Count 122 x1000/uL (130-400); RBC 4.23 m/cumm (4.50-6.00); RBC Distribution Width 14.4 % (11.8-14.1); White Blood Cell Count 5.34 k/cumm (4.4-10.8)
[2019-03-29 08:08] LABS: ALT 41 U/L (12-78); AST 30 U/L (15-37); Albumin 3.6 g/dL (3.4-5.0); Alkaline Phosphatase 108 U/L (46-116); Anion Gap 9.7 mmol/L (3-11); BUN 12 mg/dL (7-18); Bilirubin, Total 1.5 mg/dL (0.2-1.0); CO2 27.3 mmol/L (21.0-32.0); CREATININE 1.12 mg/dL (0.70-1.30); Chloride 102 mmol/L (98-107); Ferritin 52 ng/mL (8-388); Glucose 285 mg/dL (70-100); Potassium 3.7 mmol/L (3.5-5.1); Sodium 139 mmol/L (136-145); Total Protein 7.5 g/dL (6.4-8.2)
[2019-03-29 08:13] LABS: Calcium 8.5 mg/dL (8.5-10.1)
== END 2019-03-29 07:31 ==
PROVIDERS: PCP Emergency Medicine; Visit Provider Internal Medicine Hematology & Oncology
DX: D50.0 Iron deficiency anemia secondary to blood loss (chronic) (principal); K75.81 Nonalcoholic steatohepatitis (NASH); K74.60 Unspecified cirrhosis of liver
CPT/HCPCS: 36415; 80053; 82728; 85025

== ENCOUNTER 2019-04-01 10:30 | Outpatient (CLI) | payer BC, SELFPAY ==
[2019-04-01 11:24] LABS: Absolute Basophil Count 0.02 k/cumm (0.0-0.2); Absolute Eosinophil Count 0.23 k/cumm (0.0-0.7); Absolute Lymphocyte Count 1.17 k/cumm (1.2-3.4); Absolute Monocyte Count 0.29 k/cumm (0.11-0.7); Absolute Neutrophil Count 2.18 k/cumm (1.2-6.7); Basophils % 0.5; Eosinophils % 5.9; HCT 36.1 % (40.0-50.0); HGB 12.2 g/dL (13.5-17.5); Lymphocytes % 30.1; Mean Corp. HGB Concentration 33.8 g/dL (32.0-36.0); Mean Corpuscular Hemoglobin 29.8 pg (27.0-33.0); Mean Platelet Volume 10.7 fL (8.0-11.0); Monocytes % 7.5; Platelet Count 113 x1000/uL (130-400); RBC Distribution Width 14.7 % (11.8-14.1); White Blood Cell Count 3.89 k/cumm (4.4-10.8)
[2019-04-01 11:48] LABS: ALT 43 U/L (12-78); AST 31 U/L (15-37); Albumin 3.5 g/dL (3.4-5.0); Alkaline Phosphatase 112 U/L (46-116); BUN 18 mg/dL (7-18); CREATININE 0.94 mg/dL (0.70-1.30); Calcium 8.5 mg/dL (8.5-10.1); Chloride 107 mmol/L (98-107); Ferritin 63 ng/mL (8-388); Glucose 198 mg/dL (70-100); Potassium 3.7 mmol/L (3.5-5.1); Sodium 143 mmol/L (136-145); Total Protein 6.6 g/dL (6.4-8.2)
[2019-04-03 07:49] LABS: Hemoglobin A1C 8.8 % (4.5-6.2)
== END 2019-04-01 10:50 ==
PROVIDERS: Internal Medicine Hematology & Oncology; PCP Emergency Medicine; Visit Provider Emergency Medicine
DX: E11.9 Type 2 diabetes mellitus without complications (principal); D50.0 Iron deficiency anemia secondary to blood loss (chronic); K75.81 Nonalcoholic steatohepatitis (NASH); K74.60 Unspecified cirrhosis of liver
CPT/HCPCS: 36415; 80053; 82728; 83036; 85025

== ENCOUNTER 2019-04-17 07:21 | Outpatient (CLI) | payer BC, SELFPAY ==
[2019-04-17 07:53] LABS: Abs Immature Grans 0.01 k/cumm (0.0-0.09); Absolute Basophil Count 0.02 k/cumm (0.0-0.2); Absolute Eosinophil Count 0.19 k/cumm (0.0-0.7); Absolute Lymphocyte Count 1.32 k/cumm (1.2-3.4); Absolute Monocyte Count 0.34 k/cumm (0.11-0.7); Absolute Neutrophil Count 2.74 k/cumm (1.2-6.7); Basophils % 0.4; Eosinophils % 4.1; HGB 12.7 g/dL (13.5-17.5); Immature Grans % 0.2; Lymphocytes % 28.6; Mean Corp. HGB Concentration 33.4 g/dL (32.0-36.0); Mean Corpuscular Volume 89.6 fL (80-95); Mean Platelet Volume 10.4 fL (8.0-11.0); Monocytes % 7.4; Neutrophils % 59.3; Platelet Count 113 x1000/uL (130-400); RBC 4.24 m/cumm (4.50-6.00); RBC Distribution Width 15.6 % (11.8-14.1); White Blood Cell Count 4.62 k/cumm (4.4-10.8)
[2019-04-17 08:48] LABS: Ferritin 53 ng/mL (8-388)
== END 2019-04-17 07:41 ==
PROVIDERS: PCP Emergency Medicine; Visit Provider Internal Medicine Hematology & Oncology
DX: D50.0 Iron deficiency anemia secondary to blood loss (chronic) (principal)
CPT/HCPCS: 36415; 82728; 85025

== ENCOUNTER 2019-05-30 07:07 | Outpatient (CLI) | payer BC, SELFPAY ==
[2019-05-30 07:40] LABS: HCT 38.7 % (40.0-50.0); Mean Corp. HGB Concentration 33.6 g/dL (32.0-36.0); Mean Corpuscular Hemoglobin 30.1 pg (27.0-33.0); Mean Corpuscular Volume 89.6 fL (80-95); Mean Platelet Volume 10.1 fL (8.0-11.0); Platelet Count 126 x1000/uL (130-400); RBC 4.32 m/cumm (4.50-6.00); RBC Distribution Width 15.4 % (11.8-14.1); White Blood Cell Count 4.35 k/cumm (4.4-10.8)
[2019-05-30 08:34] LABS: Hemoglobin A1C 7.1 % (4.5-6.2)
[2019-05-30 08:38] LABS: Ferritin 50 ng/mL (8-388)
== END 2019-05-30 07:27 ==
PROVIDERS: PCP Emergency Medicine; Visit Provider Emergency Medicine
DX: K92.2 Gastrointestinal hemorrhage, unspecified (principal); E11.9 Type 2 diabetes mellitus without complications
CPT/HCPCS: 36415; 85027; 82728; 83036

== ENCOUNTER 2019-10-13 07:10 | Outpatient (CLI) | payer OTHER, SELFPAY ==
[2019-10-13 07:57] LABS: Hemoglobin A1C 8.5 % (3.8-5.6)
== END 2019-10-13 07:30 ==
PROVIDERS: PCP Emergency Medicine; Visit Provider Emergency Medicine
DX: E11.9 Type 2 diabetes mellitus without complications (principal)
CPT/HCPCS: 36415; 83036

== ENCOUNTER 2020-03-18 10:54 | Outpatient (CLI) | payer OTHER, SELFPAY ==
--- NOTE | 2020-03-18 08:30 | DI.RAD_ITS ---
EXAM: XR HIP LT COMPLETE AP PELVIS INDICATION: eval L hip pain. COMPARISON: None TECHNIQUE: 2D digital imaging was performed. FINDINGS: There is thickening of the right femoral neck compared to the left which could be secondary to a kenney te fracture. Hip joint spaces are relatively well maintained. There is bilateral acetabular spurrin g. There is mild spurring at the greater trochanters. IMPRESSION: Mild degenerative changes. DATA REPOSITORY: RADIATION DOSE DELIVERED:
== END 2020-03-18 11:14 ==
PROVIDERS: PCP Emergency Medicine; Referring Provider Emergency Medicine; Visit Provider Student in an Organized Health Care Education/Training Program
DX: M25.552 Pain in left hip (principal); M16.12 Unilateral primary osteoarthritis, left hip
CPT/HCPCS: 73502

== ENCOUNTER 2020-05-16 03:21 | Outpatient (CLI) | payer OTHER, SELFPAY ==
[2020-05-16 15:54] LABS: Abs Immature Grans 0.02 10^3/uL (0.0-0.06); Absolute Basophil Count 0.03 10^3/uL (0.0-0.2); Absolute Eosinophil Count 0.19 10^3/uL (0.0-0.7); Absolute Lymphocyte Count 1.35 10^3/uL (1.2-3.4); Absolute Monocyte Count 0.41 10^3/uL (0.1-0.8); Absolute Neutrophil Count 3.26 10^3/uL (1.2-6.7); Basophils % 0.6; Eosinophils % 3.6; HCT 36.6 % (40.0-50.0); HGB 12.1 g/dL (13.5-17.5); Immature Grans % 0.4; Lymphocytes % 25.7; MCHC 33.1 % (32.0-36.0); MCV 87.8 fL (80-95); MPV 10.1 fL (8.0-11.0); Monocytes % 7.8; Neutrophils % 61.9; Nucleated RBC 0 %; Platelet Count 143 10^3/uL (130-400); RBC 4.17 10^6/uL (4.36-5.78); RDW 15.6 % (11.8-14.1); RDW-SD 50.1 fL; WBC 5.26 10^3/uL (4.4-10.8)
[2020-05-16 17:49] LABS: Ferritin 52 ng/mL (26-388)
== END 2020-05-16 03:41 ==
PROVIDERS: PCP Emergency Medicine; Visit Provider Internal Medicine Hematology & Oncology
DX: D50.9 Iron deficiency anemia, unspecified (principal)
CPT/HCPCS: 36415; 82728; 85025

== ENCOUNTER 2020-05-21 22:28 | Outpatient (REF) | payer OTHER, SELFPAY ==
[2020-05-21 23:12] LABS: Hemoglobin A1C 6.8 % (3.8-5.6)
[2020-05-21 23:17] LABS: TSH 1.95 uIU/mL (0.36-3.74)
== END 2020-05-21 22:48 ==
LOC: LBN 22:28
PROVIDERS: PCP Emergency Medicine; Visit Provider Emergency Medicine
DX: E03.9 Hypothyroidism, unspecified (principal); E11.9 Type 2 diabetes mellitus without complications
CPT/HCPCS: 83036; 84443

== ENCOUNTER 2020-05-23 00:47 | Outpatient (CLI) | payer OTHER, SELFPAY ==
--- NOTE | 2020-05-23 08:00 | DI.RAD_ITS ---
EXAM: RF JOINT INJECTION FLUORO GUID CLINICAL HISTORY: L HIP INJ UNDER FLUORO,LT HIP BURSITIS,DEGENERATIVE JOINT DISEASE. TECHNIQUE: 2D and realtime digital imaging was performed. COMPARISON: No exams were available for comparison FINDINGS: Fluoroscopy was provided for guidance with performing a left hip injection. A single hard copy image shows a needle projecting at the lateral aspect of the femoral head and injection of small amount of contrast. Please see procedure note for details. Fluoro time: 7 sec, 39.4 mGy RADIATION DOSE DELIVERED:
--- NOTE | 2020-05-23 14:54 | W.PROCNOTE ---
Date of service: 05/23/20 Time of Service: 14:55 Procedure Note Date of procedure: 05/23/20 Procedure: Left Hip Injection with Fluoroscopic Guidance Surgeon/Proceduralist/Physician: Matt Jordan Procedure Diagnosis: Left Hip Osteoarthritis Procedure Indications: Adriano has had persistent pain of the LEFT hip and groin. Noninvasive measures have been tried. To serve as both diagnostic and therapeutic, an injection under fluoroscopy was recommended. I had discussed the risks of the procedure and the patient elected to proceed. Procedure Description: Adriano was greeted in the flouroscopy room. The correct side was identified and the consent was reviewed with the patient and signed. The patient was then placed in the supine position on the fluoroscopy table. The LEFT hip was then prepped with Chloraprep. The anterolateral injection starting point was identiifed by bony landmarks and fluoroscopy. The skin and soft tissue in the tract of the injection was anesthetized with 1% Lidocaine. A spinal needle was then inserted deep into the hip joint at the level of the lateral femoral neck under fluoroscopic guidance. A small amount of Omnipaque solution was injected to confirm intraarticular placement. Once confirmed, the hip was injected with 6cc of 0.5% Bupivicaine and 80mg of Depo-Medrol. A bandaid was placed on the injection site. The patient tolerated the procedure well.
[2020-05-23] MEDS: Omnipaque 300 MG/ML 10 ML BTL IJ (15:12)
[2020-05-23] MEDS: methylPREDNISolone ACETATE 80 MG/ML VIAL IM (15:13)
[2020-05-23] MEDS: Bupivacaine 0.5% Pres-Free 10 ML VIAL IJ (15:13)
== END 2020-05-23 01:07 ==
PROVIDERS: PCP Emergency Medicine; Visit Provider Student in an Organized Health Care Education/Training Program
DX: M16.12 Unilateral primary osteoarthritis, left hip (principal); M25.552 Pain in left hip; R10.32 Left lower quadrant pain
CPT/HCPCS: 77002; J1040

== ENCOUNTER 2020-07-01 09:24 | Outpatient (CLI) | payer OTHER, SELFPAY ==
[2020-07-03 00:46] LABS: Patient Race White; SARS-CoV-2 RNA Undetected (Undetected); SARS-CoV-2 Specimen Source Nasopharynx
== END 2020-07-01 09:44 ==
PROVIDERS: PCP Emergency Medicine; Visit Provider Emergency Medicine
DX: J02.9 Acute pharyngitis, unspecified (principal); R51 Headache; R50.9 Fever, unspecified
CPT/HCPCS: U0003

== ENCOUNTER 2020-07-09 12:30 | Outpatient (CLI) | payer OTHER, SELFPAY ==
[2020-07-11 13:04] LABS: Patient Race White; SARS-CoV-2 RNA Undetected (Undetected); SARS-CoV-2 Specimen Source Nasopharynx
== END 2020-07-09 12:50 ==
PROVIDERS: PCP Emergency Medicine; Visit Provider Emergency Medicine
DX: Z11.59 Encounter for screening for other viral diseases (principal)
CPT/HCPCS: U0003

== ENCOUNTER 2020-07-30 10:02 | Outpatient (CLI) | payer OTHER, SELFPAY ==
--- NOTE | 2020-07-30 12:00 | DI.RAD_ITS ---
EXAM: XR CHEST 2V PA LATERAL CLINICAL HISTORY: chest pain sob R07.9 TECHNIQUE: 2D digital imaging was performed. COMPARISON: CR PORTABLE CHEST ONE VIEW from 03/10/2016 FINDINGS: The heart is not enlarged. The lungs are clear and well expanded. No pleural effusion seen. Mediastin al contours appear intact. IMPRESSION: Normal chest RADIATION DOSE DELIVERED: Total DLP
== END 2020-07-30 10:22 ==
PROVIDERS: PCP Emergency Medicine; Visit Provider Emergency Medicine
DX: R07.9 Chest pain, unspecified (principal)
CPT/HCPCS: 71046

== ENCOUNTER 2020-07-30 12:13 | Outpatient (CLI) | payer OTHER, SELFPAY ==
[2020-07-30 13:08] LABS: Abs Immature Grans 0.01 10^3/uL (0.0-0.06); Absolute Basophil Count 0.03 10^3/uL (0.0-0.2); Absolute Eosinophil Count 0.17 10^3/uL (0.0-0.7); Absolute Lymphocyte Count 1.86 10^3/uL (1.2-3.4); Absolute Neutrophil Count 1.66 10^3/uL (1.2-6.7); Basophils % 0.7; Eosinophils % 4.1; HCT 35.5 % (40.0-50.0); HGB 11.6 g/dL (13.5-17.5); Immature Grans % 0.2; MCHC 32.7 % (32.0-36.0); MCV 88.8 fL (80-95); MPV 10.2 fL (8.0-11.0); Monocytes % 9.7; Neutrophils % 40.3; Nucleated RBC 0 %; Platelet Count 142 10^3/uL (130-400); RDW 17.1 % (11.8-14.1); RDW-SD 54.6 fL; WBC 4.13 10^3/uL (4.4-10.8)
[2020-07-30 13:55] LABS: D-Dimer 297 ng/mlFEU (<500)
[2020-07-30 14:26] LABS: ALT 37 U/L (16-63); AST 30 U/L (15-37); Albumin 3.5 g/dL (3.4-5.0); Alkaline Phosphatase 103 U/L (46-116); Anion Gap 5.5 mmol/L (3-11); BUN 12 mg/dL (7-18); Bilirubin, Total 1.5 mg/dL (0.2-1.0); CO2 28.5 mmol/L (21.0-32.0); CREATININE 0.85 mg/dL (0.70-1.30); Calcium 8.4 mg/dL (8.5-10.1); Chloride 104 mmol/L (98-107); Glucose 117 mg/dL (74-106); NT-proBNP 42 pg/mL (<300); Potassium 3.4 mmol/L (3.5-5.1); Sodium 138 mmol/L (136-145); Total Protein 6.8 g/dL (6.4-8.2)
== END 2020-07-30 12:33 ==
PROVIDERS: PCP Emergency Medicine; Visit Provider Emergency Medicine
DX: I50.9 Heart failure, unspecified (principal); R07.89 Other chest pain
CPT/HCPCS: 36415; 80053; 83880; 85025; 85379; 86140

== ENCOUNTER 2020-08-06 00:47 | Outpatient (CLI) | payer OTHER, SELFPAY ==
--- NOTE | 2020-08-06 07:00 | DI.NM_ITS ---
APPROVED REPORT Exam: Exercise Treadmill Patient Location: Out-Patient Room/Bed: Stress Nurse: Ana Germain RN BMI: 40.16 Baseline Rhythm: Sinus Bradycardia Medical History Medical History: ASCVD. Unstable Angina. CAD. DM II. HTN. ETOH use. HLD. ARIN w/ CPAP use. Portal HTN w/ Esophageal Varices. Anemia. Cardiac Medications: Fish Oil. Nitroglycerin. Omeprazole. Glipidizide. Furosemide. Atorvastatin. Metf ormin. Nadolol. Allergies: Niacin. Hydrocodone. Hydrochlorothiazide. Amlodipine. Ramipril. Cardiac Risk Factors: FHX of CAD, HTN, Hyperlipidemia, Diabetes (non-insulin), CVD Previous Cardiac Procedures: PCI 1998 (stent to RCA) Pretest Chest Pain Characteristics: No chest pain Exercise History: Sedentary Physical Disabilities: None. Lung Sounds: Clear to auscultation Heart Sounds: Regular Stress Test Details Nuclear Acquisition: Rest Tc-99m/Stress Tc-99m 1 day Rest Isotope: Tc-99m Sestamibi. Dose: 14.6 Date: 08/06/2020 Injection Time: 0915 Stress Isotope: Tc-99m Sestamibi. Dose: 47 Date: 08/06/2020 Injection Time: 1016 HR Resting HR Supine: 54 bpm Max Heart Rate (APMHR): 160 bpm Resting HR Standin bpm Target HR (85% APMHR): 136 bpm Max HR Achieved: 150 bpm % of APMHR: 93 Recovery HR: 82 bpm HR response to stress: Normal HR response to stress BP Resting BP Supine: 132/80 mmHg Resting BP Standin/78 mmHg Max BP: 176/80 mmHg Recovery BP: 140/84 mmHg BP response to stress: Normal blood pressure response to stress. ECG Resting ECG: Sinus Bradycardia Ectopy: None. Stress ECG: Sinus Tachycardia ST Change: No significant ST segment changes noted. Arrhythmia: None. Recovery ECG: Sinus Rhythm Recovery ST Change: No significant ST segment changes noted. Recovery Arrhythmia: None. Clinical Reason for Termination: Leg pain Stress Symptoms: Leg Fatigue, Dyspnea Exercise duration: 5 min09 sec Exercise capacity: 9.35 METs Stress ECG Conclusion 1. The patient exercised for 5 minutes (9 METS). Exercise was stopped due to leg pain. 2. Patient no symptoms suggestive of ischemia. 3. There is no evidence of ischemia on the ECG portion of the exam. Stress Test Summary STAGE Time (mins) Speed (mph) Grade (%) HR BP SYMPTOMS METS Supine 54 132/80 Standing 60 138/78 Dyspnea. 2 6 2.5 12 119 142/76 7 1 min recovery 121 176/80 3 min recovery 88 166/82 6 min recovery 82 140/84 Exercise time not correlated with stages due to computer glitch during test. MPI Conclusion Fraction was 66% with stress. There were no wall motion abnormalities. There is no evidence of ischemia on the imaging portion of the exam. This represents a normal SPECT stress test. Radiologist Interpretation Radiologist Interpretation by: Abel Tejeda MD Interpretation Date/Time: 08/06/2020 16:29:14
== END 2020-08-06 01:07 ==
PROVIDERS: PCP Emergency Medicine; Visit Provider Emergency Medicine
DX: R07.9 Chest pain, unspecified (principal); Z82.49 Family history of ischemic heart disease and other diseases of the circulatory system; I10 Essential (primary) hypertension; E78.5 Hyperlipidemia, unspecified; E11.9 Type 2 diabetes mellitus without complications; I25.10 Atherosclerotic heart disease of native coronary artery without angina pectoris
CPT/HCPCS: 78452; 93017

== ENCOUNTER 2020-09-24 02:16 | Outpatient (CLI) | payer OTHER, SELFPAY ==
[2020-09-24 10:15] LABS: Abs Immature Grans 0.01 10^3/uL (0.0-0.06); Absolute Basophil Count 0.02 10^3/uL (0.0-0.2); Absolute Eosinophil Count 0.15 10^3/uL (0.0-0.7); Absolute Lymphocyte Count 1.41 10^3/uL (1.2-3.4); Absolute Monocyte Count 0.36 10^3/uL (0.1-0.8); Absolute Neutrophil Count 2.28 10^3/uL (1.2-6.7); Basophils % 0.5; Eosinophils % 3.5; HCT 37.4 % (40.0-50.0); HGB 12.5 g/dL (13.5-17.5); Immature Grans % 0.2; Lymphocytes % 33.3; MCH 28.9 pg (27.0-33.0); MCHC 33.4 % (32.0-36.0); MCV 86.6 fL (80-95); MPV 9.8 fL (8.0-11.0); Monocytes % 8.5; Nucleated RBC 0 %; Platelet Count 117 10^3/uL (130-400); RBC 4.32 10^6/uL (4.36-5.78); RDW 14.6 % (11.8-14.1); RDW-SD 46.6 fL; WBC 4.23 10^3/uL (4.4-10.8)
[2020-09-24 11:06] LABS: Calculated LDL 69 mg/dL (<100); Cholesterol 139 mg/dL (<200); HDL Cholesterol 31 mg/dL (40-60); Triglyceride 196 mg/dL (<150)
[2020-09-24 11:16] LABS: Ferritin 28 ng/mL (26-388)
[2020-09-24 21:59] LABS: PSA, Screening 1.6 ng/mL (0.0-4.5)
== END 2020-09-24 02:36 ==
PROVIDERS: Internal Medicine Hematology & Oncology; PCP Emergency Medicine; Visit Provider Emergency Medicine
DX: E78.5 Hyperlipidemia, unspecified (principal); D50.0 Iron deficiency anemia secondary to blood loss (chronic); Z12.5 Encounter for screening for malignant neoplasm of prostate
CPT/HCPCS: 36415; 80061; 84153; 82728; 85025

== ENCOUNTER 2020-09-25 07:42 | Outpatient (CLI) | payer OTHER, SELFPAY ==
--- NOTE | 2020-09-25 11:45 | DI.RAD_ITS ---
EXAM: XR LUMBAR SPINE COMPLETE CLINICAL HISTORY: M54.30 Sciatica, M25.552 PAIN LT HIP. TECHNIQUE: 2D digital imaging was performed. COMPARISON: No exams were available for comparison FINDINGS: There are 5 lumbar type vertebral bodies. No spondylolysis or spondylolisthesis is seen. The disc h eights are well maintained. Endplate osteophytes are present at multiple levels of the lumbar spine. Degenerative changes of the facets are seen at in the lower lumbar spine. No acute fracture or sub luxation is present. Atherosclerosis. IMPRESSION: Moderate degenerative changes in the lumbar spine. If there are radicular concerns, an MRI of the brynn mbar spine may be considered for further evaluation. DATA REPOSITORY: RADIATION DOSE DELIVERED:
== END 2020-09-25 08:02 ==
PROVIDERS: PCP Emergency Medicine; Visit Provider Emergency Medicine
DX: M47.816 Spondylosis without myelopathy or radiculopathy, lumbar region (principal); M54.30 Sciatica, unspecified side
CPT/HCPCS: 72110

== ENCOUNTER 2020-11-28 09:33 | Outpatient (CLI) | payer OTHER, SELFPAY ==
[2020-11-28 10:14] LABS: Abs Immature Grans 0.02 10^3/uL (0.0-0.06); Absolute Basophil Count 0.03 10^3/uL (0.0-0.2); Absolute Eosinophil Count 0.18 10^3/uL (0.0-0.7); Absolute Lymphocyte Count 1.31 10^3/uL (1.2-3.4); Absolute Monocyte Count 0.34 10^3/uL (0.1-0.8); Absolute Neutrophil Count 2.67 10^3/uL (1.2-6.7); Basophils % 0.7; HCT 38.4 % (40.0-50.0); Immature Grans % 0.4; Lymphocytes % 28.8; MCHC 33.9 % (32.0-36.0); MCV 88.5 fL (80-95); MPV 10.1 fL (8.0-11.0); Monocytes % 7.5; Neutrophils % 58.6; Nucleated RBC 0 %; Platelet Count 137 10^3/uL (130-400); RBC 4.34 10^6/uL (4.36-5.78); RDW 14.6 % (11.8-14.1); RDW-SD 47.1 fL; WBC 4.55 10^3/uL (4.4-10.8)
[2020-11-28 10:22] LABS: INR 1.1 (0.9-1.1); Prothrombin Time 10.6 sec (9.3-11.0)
[2020-11-28 10:26] LABS: ALT 33 U/L (16-63); AST 18 U/L (15-37); Albumin 3.8 g/dL (3.4-5.0); Alkaline Phosphatase 104 U/L (46-116); Anion Gap 9.7 mmol/L (3-11); BUN 14 mg/dL (7-18); Bilirubin, Total 1.3 mg/dL (0.2-1.0); CO2 26.3 mmol/L (21.0-32.0); Calcium 8.3 mg/dL (8.5-10.1); Chloride 104 mmol/L (98-107); Glucose 181 mg/dL (74-106); Potassium 3.5 mmol/L (3.5-5.1); Sodium 140 mmol/L (136-145); Total Protein 7.6 g/dL (6.4-8.2)
[2020-11-28 10:27] LABS: Hemoglobin A1C 7.1 % (<5.7)
[2020-11-28 11:01] LABS: Ferritin 133 ng/mL (26-388)
[2020-11-29 09:26] LABS: AFP Tumor Marker <2.5 ng/mL (<8.1)
== END 2020-11-28 09:34 | disposition home or self-care (01) ==
LOC: LBO 09:35
PROVIDERS: PCP Emergency Medicine; Visit Provider Internal Medicine Hematology & Oncology
DX: D50.0 Iron deficiency anemia secondary to blood loss (chronic) (principal); K75.81 Nonalcoholic steatohepatitis (NASH); K74.60 Unspecified cirrhosis of liver; E11.69 Type 2 diabetes mellitus with other specified complication
CPT/HCPCS: 36415; 80053; 82105; 82728; 83036; 85025; 85610

== ENCOUNTER 2021-01-24 01:15 | Outpatient (CLI) | payer OTHER, SELFPAY | END 2021-01-24 01:16 | disposition home or self-care (01) | LOC: LOS 01:15 | PROVIDERS: PCP Emergency Medicine; Visit Provider Emergency Medicine | DX: E03.9 Hypothyroidism, unspecified (principal) | CPT/HCPCS: 36415; 84443 ==

== ENCOUNTER 2021-03-27 03:42 | Outpatient (CLI) | payer OTHER, SELFPAY ==
[2021-03-27 12:12] LABS: Abs Immature Grans 0.02 10^3/uL (0.0-0.06); Absolute Basophil Count 0.04 10^3/uL (0.0-0.2); Absolute Eosinophil Count 0.21 10^3/uL (0.0-0.7); Absolute Lymphocyte Count 1.47 10^3/uL (1.2-3.4); Absolute Monocyte Count 0.42 10^3/uL (0.1-0.8); Absolute Neutrophil Count 3.02 10^3/uL (1.2-6.7); Basophils % 0.8; Eosinophils % 4.1; HCT 38.5 % (40.0-50.0); HGB 13.2 g/dL (13.5-17.5); Immature Grans % 0.4; Lymphocytes % 28.4; MCH 30.8 pg (27.0-33.0); MCHC 34.3 % (32.0-36.0); MCV 89.7 fL (80-95); MPV 10.2 fL (8.0-11.0); Monocytes % 8.1; Neutrophils % 58.2; Nucleated RBC 0 %; Platelet Count 121 10^3/uL (130-400); RBC 4.29 10^6/uL (4.36-5.78); RDW 13.8 % (11.8-14.1); RDW-SD 45.1 fL; WBC 5.18 10^3/uL (4.4-10.8)
[2021-03-27 12:46] LABS: Ferritin 97 ng/mL (26-388)
== END 2021-03-27 03:43 | disposition home or self-care (01) ==
LOC: LBO 03:42
PROVIDERS: PCP Emergency Medicine; Visit Provider Internal Medicine Hematology & Oncology
DX: D50.9 Iron deficiency anemia, unspecified (principal)
CPT/HCPCS: 36415; 82728; 85025

== ENCOUNTER 2021-05-23 02:34 | Outpatient (CLI) | payer OTHER, SELFPAY ==
[2021-05-23 08:40] LABS: ALT 33 U/L (16-63); AST 18 U/L (15-37); Alkaline Phosphatase 93 U/L (46-116); Anion Gap 9.1 mmol/L (3-11); BUN 13 mg/dL (7-18); Bilirubin, Direct 0.4 mg/dL (0.0-0.2); Bilirubin, Total 2.1 mg/dL (0.2-1.0); CO2 28.9 mmol/L (21.0-32.0); CREATININE 0.9 mg/dL (0.70-1.30); Calcium 8.5 mg/dL (8.5-10.1); Chloride 104 mmol/L (98-107); Glucose 186 mg/dL (74-106); Potassium 3.7 mmol/L (3.5-5.1); Sodium 142 mmol/L (136-145); Total Protein 6.9 g/dL (6.4-8.2)
[2021-05-23 08:45] LABS: Iron 64 ug/dL (65-175); Total Iron Binding Capacity 345 ug/dL (250-450); Transferrin Sat 19 % (20-55)
[2021-05-23 09:00] LABS: Hemoglobin A1C 6.5 % (<5.7)
[2021-05-23 09:14] LABS: Ferritin 93 ng/mL (26-388)
== END 2021-05-23 02:35 | disposition home or self-care (01) ==
LOC: LBO 02:34
PROVIDERS: PCP Emergency Medicine; Visit Provider Emergency Medicine
DX: D64.9 Anemia, unspecified (principal); I10 Essential (primary) hypertension; E11.9 Type 2 diabetes mellitus without complications
CPT/HCPCS: 36415; 80048; 80076; 82728; 83036; 83540; 83550

== ENCOUNTER 2021-05-26 00:45 | Outpatient (CLI) | payer OTHER, SELFPAY ==
--- NOTE | 2021-05-26 09:00 | DI.CT_ITS ---
Exam(s) CT NECK W EXAM: CT NECK W CLINICAL HISTORY: left node, enlarged lymph node neck, R59.0. TECHNIQUE: Imaging Protocol: Axial CT angiography was performed with multi-slice acquisition and mu lti-planar and/or 3D reconstructions. CONTRAST MATERIAL: Intravenous: Omnipaque 350 Contrast volume:structured data in ml COMPARISON: CT HEAD NECK FACIAL WO from 03/15/2017 FINDINGS: Nasopharynx: The tissues nasopharynx are symmetrical. No mass at this level. Oropharynx: Slight asymmetry with mild fullness on the right but no enhancing mass nor abscess seen. Hypopharynx: Free edge of the epiglottis and aryepiglottic folds appear unremarkable. Valleculae unr emarkable. Vocal cords: Unremarkable. Subglottic airway unremarkable. Thyroid gland: Unremarkable. Salivary glands: The parotid and submandibular glands appear unremarkable. No masses nor calculi robert dent. Lymph nodes: No obvious enlarged lymph nodes on either side of the neck. No necrotic mass. No supra clavicular adenopathy. Vascular: IV contrast is predominantly venous. There is no thrombosis of the jugular veins. Osseous: No fracture. No osseous lesions IMPRESSION: 1. There is mild asymmetry-fullness in the right side of the oral pharynx, possibly exaggerated by pa tient's being slightly rotated. There is no enhancing mass nor abscess seen at this level. Direct v isualization recommended. 2. No evidence of obvious lymphadenopathy in the neck. RADIATION DOSE DELIVERED: 526.66mGy.cm Total DLP DATA REPOSITORY: All CT scans at this facility are submitted to the National Radiology Data Registry (NRDR) Dose Index Registry (DIR) with the [employer] ([employer]). RADIATION OPTIMIZATION: All CT scans at this facility use at least one of these dose optimization te chniques: automated exposure control; mA and/or kV adjustment per patient size (includes targeted exa ms where dose is matched to clinical indication); or iterative reconstruction.
[2021-05-26] MEDS: Omnipaque 350 MG/ML 100 ML BTL IJ (13:49)
== END 2021-05-26 01:05 ==
PROVIDERS: PCP Emergency Medicine; Visit Provider Emergency Medicine
DX: R59.0 Localized enlarged lymph nodes (principal)
CPT/HCPCS: 70491; J3490

== ENCOUNTER 2021-10-10 03:44 | Outpatient (CLI) | payer BC, SELFPAY ==
[2021-10-10 08:52] LABS: Calculated LDL 65 mg/dL (<100); Cholesterol 136 mg/dL (<200); HDL Cholesterol 31 mg/dL (40-60); TSH 1.31 uIU/mL (0.36-3.74); Triglyceride 204 mg/dL (<150)
== END 2021-10-10 03:45 | disposition home or self-care (01) ==
LOC: LBO 03:44
PROVIDERS: PCP Emergency Medicine; Visit Provider Emergency Medicine
DX: E03.9 Hypothyroidism, unspecified (principal); E78.5 Hyperlipidemia, unspecified; I10 Essential (primary) hypertension; I85.00 Esophageal varices without bleeding; K74.60 Unspecified cirrhosis of liver; K76.6 Portal hypertension; R18.8 Other ascites; Z95.828 Presence of other vascular implants and grafts; E11.9 Type 2 diabetes mellitus without complications
CPT/HCPCS: 36415; 80061; 83036; 84443

== ENCOUNTER 2021-10-23 02:01 | Outpatient (CLI) | payer BC, SELFPAY ==
[2021-10-23 12:45] LABS: Abs Immature Grans 0.01 10^3/uL (0.0-0.06); Absolute Basophil Count 0.03 10^3/uL (0.0-0.2); Absolute Eosinophil Count 0.22 10^3/uL (0.0-0.7); Absolute Lymphocyte Count 1.48 10^3/uL (1.2-3.4); Absolute Monocyte Count 0.38 10^3/uL (0.1-0.8); Absolute Neutrophil Count 3.42 10^3/uL (1.2-6.7); Basophils % 0.5; HCT 39.7 % (40.0-50.0); Immature Grans % 0.2; Lymphocytes % 26.7; MCHC 32.7 % (32.0-36.0); MCV 88.6 fL (80-95); MPV 10.1 fL (8.0-11.0); Monocytes % 6.9; Neutrophils % 61.7; Nucleated RBC 0 %; Platelet Count 140 10^3/uL (130-400); RBC 4.48 10^6/uL (4.36-5.78); RDW 13.5 % (11.8-14.1); RDW-SD 43.8 fL; WBC 5.54 10^3/uL (4.4-10.8)
[2021-10-23 12:52] LABS: ALT 31 U/L (16-63); AST 17 U/L (15-37); Albumin 4.1 g/dL (3.4-5.0); Alkaline Phosphatase 103 U/L (46-116); Anion Gap 5.4 mmol/L (3-11); BUN 13 mg/dL (7-18); Bilirubin, Total 1.4 mg/dL (0.2-1.0); CO2 30.6 mmol/L (21.0-32.0); Calcium 8.8 mg/dL (8.5-10.1); Chloride 103 mmol/L (98-107); Glucose 179 mg/dL (74-106); Potassium 3.7 mmol/L (3.5-5.1); Sodium 139 mmol/L (136-145); Total Protein 7.8 g/dL (6.4-8.2)
== END 2021-10-23 02:02 | disposition home or self-care (01) ==
LOC: LBO 02:01
PROVIDERS: PCP Emergency Medicine; Visit Provider Internal Medicine Hematology & Oncology
DX: D50.0 Iron deficiency anemia secondary to blood loss (chronic) (principal)
CPT/HCPCS: 36415; 80053; 85025

== ENCOUNTER 2022-01-09 10:43 | Outpatient (REF) | payer BC, SELFPAY ==
[2022-01-09 17:24] LABS: ALT 39 U/L (16-63); AST 18 U/L (15-37); Albumin 4.2 g/dL (3.4-5.0); Alkaline Phosphatase 106 U/L (46-116); Anion Gap 7.8 mmol/L (3-11); BUN 13 mg/dL (7-18); Bilirubin, Total 1.6 mg/dL (0.2-1.0); CO2 28.2 mmol/L (21.0-32.0); Calcium 8.7 mg/dL (8.5-10.1); Chloride 101 mmol/L (98-107); Glucose 311 mg/dL (74-106); Sodium 137 mmol/L (136-145); Total Protein 7.4 g/dL (6.4-8.2)
[2022-01-11 10:42] LABS: HIV-1/2 Ag & Ab Screen Negative (Negative)
[2022-01-12 11:01] LABS: Hepatitis C Ab w Rflx HCV PCR Negative (Negative)
[2022-01-12 11:19] LABS: Hepatitis B Surface Ag Negative (Negative)
[2022-01-12 11:54] LABS: Syphilis Serology (RPR) Negative (Negative)
[2022-01-12 15:03] LABS: Chlamydia Result Negative (Negative); GC Result Negative (Negative)
== END 2022-01-09 10:44 | disposition home or self-care (01) ==
LOC: LBN 10:43
PROVIDERS: PCP Family Medicine; Visit Provider Family Medicine
DX: Z11.59 Encounter for screening for other viral diseases (principal); Z11.4 Encounter for screening for human immunodeficiency virus [HIV]; Z11.3 Encounter for screening for infections with a predominantly sexual mode of transmission; Z13.228 Encounter for screening for other metabolic disorders
CPT/HCPCS: 80053; 86803; 87340; 87389; 87491; 87591; 86592

== ENCOUNTER 2022-04-22 01:23 | Outpatient (CLI) | payer BC, SELFPAY ==
[2022-04-22 16:26] LABS: Abs Immature Grans 0.01 10^3/uL (0.0-0.06); Absolute Basophil Count 0.04 10^3/uL (0.0-0.2); Absolute Eosinophil Count 0.23 10^3/uL (0.0-0.7); Absolute Lymphocyte Count 1.62 10^3/uL (1.2-3.4); Absolute Neutrophil Count 3.45 10^3/uL (1.2-6.7); Basophils % 0.7; HCT 38.4 % (40.0-50.0); HGB 13.7 g/dL (13.5-17.5); Immature Grans % 0.2; Lymphocytes % 28.2; MCH 30.4 pg (27.0-33.0); MCHC 35.7 % (32.0-36.0); MCV 85 fL (80-95); MPV 10.4 fL (8.0-11.0); Neutrophils % 59.9; Platelet Count 136 10^3/uL (130-400); RDW 13.6 % (11.8-14.1); RDW-SD 42.3 fL; WBC 5.75 10^3/uL (4.4-10.8)
[2022-04-22 17:01] LABS: ALT 29 U/L (16-63); AST 18 U/L (15-37); Albumin 4.1 g/dL (3.4-5.0); Alkaline Phosphatase 94 U/L (46-116); Anion Gap 10.8 mmol/L (3-11); BUN 12 mg/dL (7-18); Bilirubin, Total 1.9 mg/dL (0.2-1.0); CO2 27.2 mmol/L (21.0-32.0); Calcium 8.9 mg/dL (8.5-10.1); Chloride 102 mmol/L (98-107); Ferritin 62 ng/mL (26-388); Glucose 131 mg/dL (74-106); Potassium 3.7 mmol/L (3.5-5.1); Sodium 140 mmol/L (136-145); Total Protein 7.5 g/dL (6.4-8.2)
== END 2022-04-22 01:24 | disposition home or self-care (01) ==
LOC: LBO 01:23
PROVIDERS: PCP Nurse Practitioner; Visit Provider Internal Medicine Hematology & Oncology
DX: D50.0 Iron deficiency anemia secondary to blood loss (chronic) (principal)
CPT/HCPCS: 36415; 80053; 82728; 85025

== ENCOUNTER 2022-11-12 01:54 | Outpatient (CLI) | payer MEDICAID, SELFPAY ==
[2022-11-12 07:43] LABS: Calculated LDL 56 mg/dL (<100); Cholesterol 130 mg/dL (<200); HDL Cholesterol 32 mg/dL (40-60); TSH (W/Ref FT4) 2.49 uIU/mL (0.36-3.74); Triglyceride 210 mg/dL (<150)
== END 2022-11-12 01:55 | disposition home or self-care (01) ==
LOC: LBO 01:54
PROVIDERS: PCP Nurse Practitioner Family; Visit Provider Nurse Practitioner Family
DX: Z00.00 Encounter for general adult medical examination without abnormal findings (principal); E03.9 Hypothyroidism, unspecified
CPT/HCPCS: 36415; 80061; 84443

== ENCOUNTER 2023-02-01 03:03 | Outpatient (CLI) | payer BC, MEDICAID, SELFPAY ==
--- NOTE | 2023-02-01 07:21 | DI.CT_ITS ---
Exam(s) CT ABDOMEN PELVIS W EXAM: CT ABDOMEN PELVIS W CLINICAL HISTORY: increasing right inguinal pain,h/o rt inguinal repair,z87.19,z98.890 TECHNIQUE: Imaging Protocol: Axial computed tomography images with coronal and sagittal reformatted images were created and reviewed CONTRAST MATERIAL: Intravenous: Omnipaque 350 Contrast volume:100 mL Oral: Yes COMPARISON: No exams were available for comparison FINDINGS: ABDOMEN: Lung Bases: Coronary artery calcifications are present. Liver: There does appear to be decreased attenuation of the liver suggesting fatty infiltration. No measurable mass. There is a nodular contour of the liver suggesting hepatic cirrhosis. The liver apolinar sures 22 cm long. Portal, Superior Mesenteric, and Splenic Veins: Unremarkable. Gallbladder and Biliary Tract: No radiodense calculus or dilation. Pancreas: Normal density, no abnormal calcifications or inflammatory process. Spleen: Splenomegaly. Splenorenal varices are seen in the left upper quadrant. Adrenals: No masses seen. Kidneys: Normal size, contour and axis. No radiodense stones or obstructive uropathy. No masses seen. Abdominal Aorta: Abdominal portion non-dilated. Atherosclerosis. Bowel: No obstruction or bowel wall thickening. Appendix is unremarkable. Peritoneal Cavity: There is a trace amount of perihepatic ascites. No free air. Lymph Nodes: Within normal limits. Bones: Within normal limits for the patient's age. Soft Tissues: There are bilateral fat containing inguinal hernias. PELVIS: Bladder: The urinary bladder is incompletely distended. There is mild circumferential thickening of the wall of the urinary bladder. Reproductive Organs: Mildly enlarged prostate gland. Lymph Nodes: Within normal limits. Bones: Within normal limits for the patient's age. IMPRESSION: 1. Findings suggestive of hepatic cirrhosis with splenomegaly, abdominal varices and trace amount of ascites. 2. Bilateral fat containing inguinal hernias. RADIATION DOSE DELIVERED: 2,068.64mGy.cm Total DLP DATA REPOSITORY: All CT scans at this facility are submitted to the National Radiology Data Registry (NRDR) Dose Index Registry (DIR) with the [employer] (ACR). RADIATION OPTIMIZATION: All CT scans at this facility use at least one of these dose optimization te chniques: automated exposure control; mA and/or kV adjustment per patient size (includes targeted exa ms where dose is matched to clinical indication); or iterative reconstruction.
[2023-02-01] MEDS: Barium Sulfate 2% W/V-Berry Smoothie 450 ML BTL 900 ML PO (12:18)
[2023-02-01 12:29] LABS: CREATININE 1.2 mg/dL (0.70-1.30); Estimated GFR 67.95 (mL/min/1.73m2)
[2023-02-01] MEDS: Omnipaque 350 MG/ML 100 ML BTL IJ (13:49)
[2023-02-01] MEDS: Normal Saline - Diluent 50 ML VIAL IJ (13:49)
== END 2023-02-01 03:23 ==
PROVIDERS: PCP Nurse Practitioner Family; Visit Provider Nurse Practitioner Family
DX: Z87.19 Personal history of other diseases of the digestive system (principal); Z98.890 Other specified postprocedural states
CPT/HCPCS: 74177; 82565; J3490

== ENCOUNTER 2023-04-30 01:44 | Outpatient (CLI) | payer BC, MEDICAID, SELFPAY ==
[2023-04-30 11:41] LABS: Abs Immature Grans 0.01 10^3/uL (0.0-0.06); Absolute Basophil Count 0.04 10^3/uL (0.0-0.2); Absolute Lymphocyte Count 1.34 10^3/uL (1.2-3.4); Absolute Neutrophil Count 3.74 10^3/uL (1.2-6.7); Basophils % 0.7; Eosinophils % 3.5; HCT 39.2 % (40.0-50.0); HGB 13.3 g/dL (13.5-17.5); Immature Grans % 0.2; Lymphocytes % 23.4; MCH 29.4 pg (27.0-33.0); MCHC 33.9 % (32.0-36.0); MCV 87 fL (80-95); MPV 9.9 fL (8.0-11.0); Neutrophils % 65.2; Platelet Count 126 10^3/uL (130-400); RBC 4.52 10^6/uL (4.36-5.78); RDW 13.6 % (11.8-14.1); RDW-SD 42.5 fL; WBC 5.73 10^3/uL (4.4-10.8)
[2023-04-30 12:30] LABS: ALT 28 U/L (16-63); AST 13 U/L (15-37); Albumin 3.9 g/dL (3.4-5.0); Alkaline Phosphatase 101 U/L (46-116); Anion Gap 7.6 mmol/L (3-11); BUN 14 mg/dL (7-18); Bilirubin, Total 1.8 mg/dL (0.2-1.0); CO2 31.4 mmol/L (21.0-32.0); Calcium 8.8 mg/dL (8.5-10.1); Chloride 101 mmol/L (98-107); Estimated GFR 84.57 (mL/min/1.73m2); Ferritin 70 ng/mL (26-388); Glucose 241 mg/dL (74-106); Potassium 3.3 mmol/L (3.5-5.1); Sodium 140 mmol/L (136-145); Total Protein 7.3 g/dL (6.4-8.2)
[2023-04-30 19:34] LABS: PSA, Screening 3.7 ng/mL (<=4.5)
== END 2023-04-30 01:45 | disposition home or self-care (01) ==
PROVIDERS: PCP Nurse Practitioner Family; Visit Provider Internal Medicine Hematology & Oncology
DX: E03.9 Hypothyroidism, unspecified (principal); E11.9 Type 2 diabetes mellitus without complications; E78.5 Hyperlipidemia, unspecified; I10 Essential (primary) hypertension; K74.60 Unspecified cirrhosis of liver; Z12.5 Encounter for screening for malignant neoplasm of prostate; R18.8 Other ascites
CPT/HCPCS: 36415; 80053; 84153; 82728; 85025

== ENCOUNTER 2023-11-04 04:49 | Outpatient (CLI) | payer BC, SELFPAY ==
[2023-11-04 08:16] LABS: Calculated LDL 42 mg/dL (<100); Cholesterol 125 mg/dL (<200); HDL Cholesterol 34 mg/dL (40-60); TSH (W/Ref FT4) 1.86 uIU/mL (0.36-3.74); Triglyceride 248 mg/dL (<150)
[2023-11-04 18:16] LABS: PSA, Screening 1.9 ng/mL (<=4.5)
== END 2023-11-04 04:50 | disposition home or self-care (01) ==
LOC: LBO 04:49
PROVIDERS: PCP Nurse Practitioner Family; Visit Provider Nurse Practitioner Family
DX: E03.9 Hypothyroidism, unspecified (principal); E78.5 Hyperlipidemia, unspecified; I10 Essential (primary) hypertension; K74.60 Unspecified cirrhosis of liver; R18.8 Other ascites; Z00.00 Encounter for general adult medical examination without abnormal findings
CPT/HCPCS: 36415; 80061; 84153; 84443

== ENCOUNTER → 2024-03-06 01:11 | Outpatient (CLI) | payer BC, SELFPAY ==
--- NOTE | 2024-03-06 07:15 | DI.NM_ITS ---
APPROVED REPORT Exam: Exercise Treadmill Patient Location: Out-Patient Room/Bed: Stress Nurse: Roger Dyer RN Ordering Provider:MALICK DAMIOC, Contact Number: [phone] BMI: 41.18 Baseline Rhythm: Sinus Rhythm Indications: Atherosclerotic heart disease of [place] coronary artery. Medical History Medical History: Atherosclerotic heart disease of [place] coronary artery, DMII. Cardiac Medications: Nadolol, Felodipine, Lipitor. Allergies: Niacin, Hydrocodone, Amlodipine, HCTZ, Ramipril, Spironolactone. Cardiac Risk Factors: DM, Obesity Previous Cardiac Procedures: Cardiac stent. Pretest Chest Pain Characteristics: No chest pain Exercise History: Indeterminate Lung Sounds: Clear to auscultation Heart Sounds: Regular Stress Test Details Test: Exercise stress testing was performed using a Ezra protocol. Rest Isotope: Tc-99m Sestamibi. Dose: 12.1 Date: 03/06/2024 Injection Time: 0840 Stress Isotope: Tc-99m Sestamibi. Dose: 37.0 Date: 03/06/2024 Injection Time: 1005 HR Resting HR Supine: 65 bpm Max Heart Rate (APMHR): 156.678089 bpm Resting HR Standin bpm Target HR (85% APMHR): 132.806640 bpm Max HR Achieved: 150 bpm % of APMHR: 96.15 Recovery HR: 85 bpm HR response to stress: Normal HR response to stress BP Resting BP Supine: 150/84 mmHg Resting BP Standin/92 mmHg Max BP: 202/92 mmHg Recovery BP: 142/82 mmHg BP response to stress: Normal blood pressure response to stress. ECG Resting ECG: Sinus Rhythm Stress ECG: Sinus Tachycardia ST Change: No significant ST segment changes noted Arrhythmia: None Recovery ECG: Sinus Rhythm Recovery ST Change: No significant ST segment changes noted Recovery Arrhythmia: None Clinical Reason for Termination: Target HR Achieved Exercise duration: 4 min31 sec Highest Stage Reached: Stage 2: 2.5 mph at 12% grade. Exercise capacity: 6.45 METs Angina Score: None Rate Pressure Product: [id number] Stress ECG Conclusion 1. Resting electrocardiogram was within normal limits 2. Patient exercised on the Ezra protocol and completed a workload of 6.45 METS 3. Normal heart rate and blood pressure response to exercise. The patient achieved 91% of predicted heart rate for age 4. There was no electrocardiographic evidence of myocardial ischemia 5. There were no significant dysrhythmias 6. See MPI report Stress Test Summary STAGE Time (mins) Speed (mph) Grade (%) HR BP SpO2 SYMPTOMS METS Supine 65 150/84 93 Standing 75 168/92 93 1 3 1.7 10 148 4.5 1 min recovery 118 202/92 3 min recovery 88 182/82 97 6 min recovery 85 142/82 96 MPI Conclusion Myocardial perfusion is normal. There is no ischemia or evidence of prior infarction EF 57%, normal wall motion Radiologist Interpretation Radiologist Interpretation by: Abel Tejeda MD Interpretation Date/Time: 03/06/2024 16:07:51
== END ==
PROVIDERS: PCP Nurse Practitioner Family; Visit Provider Nurse Practitioner Family
DX: I25.10 Atherosclerotic heart disease of native coronary artery without angina pectoris (principal)
CPT/HCPCS: 78452; 93017

== ENCOUNTER 2024-09-30 13:56 | Outpatient (CLI) | payer BC, SELFPAY ==
--- NOTE | 2024-09-30 14:00 | DI.RAD_ITS ---
Exam(s) XR SHOULDER RT COMPLETE 2+V EXAM: XR SHOULDER RT COMPLETE 2+V CLINICAL HISTORY: shoulder pain. TECHNIQUE: 2D digital imaging was performed. Four views. COMPARISON: No exams were available for comparison FINDINGS: BONES: No acute fracture is present. No bony destructive lesion is seen. JOINTS: No dislocation present. Spurring at the AC joint. The glenohumeral joint is maintained. SOFT TISSUE: Normal. IMPRESSION: Degenerative changes of the AC joint. DATA REPOSITORY: RADIATION DOSE DELIVERED:
--- NOTE | 2024-09-30 15:25 | DI.VRAD_ITS ---
PROCEDURE INFORMATION: Exam: XR Right Shoulder Exam date and time: 09/30/2024 2:08 PM Age: 63 years old Clinical indication: Other: Shoulder pain TECHNIQUE: Imaging protocol: Radiologic exam of the right shoulder. Views: 2 or more views. COMPARISON: CT NECK W 05/26/2021 1:51 PM FINDINGS: Bones/joints: Degenerative changes noted in the AC joint with mild hypertrophic spurring. Glenohumeral articulation intact. Alignment anatomic. Soft tissues: Normal. IMPRESSION: No evidence for acute abnormality. Dictated and Authenticated by: Vivian Ivory MD. Ordering:SAGE Henry MD
== END 2024-09-30 14:16 ==
PROVIDERS: PCP Nurse Practitioner Family; Visit Provider Physician Assistant
DX: M19.011 Primary osteoarthritis, right shoulder (principal)
CPT/HCPCS: 73030

== ENCOUNTER 2024-11-01 04:05 | Outpatient (CLI) | payer BC, SELFPAY ==
[2024-11-01 16:08] LABS: HCT 41.5 % (40.0-50.0); HGB 14.1 g/dL (13.5-17.5); MCH 29.4 pg (27.0-33.0); MCV 87 fL (80-95); MPV 9.4 fL (8.0-11.0); Platelet Count 131 10^3/uL (130-400); RDW 13.5 % (11.8-14.1); RDW-SD 42.5 fL; WBC 5.67 10^3/uL (4.4-10.8)
[2024-11-01 17:09] LABS: ALT 25 U/L (16-63); AST 14 U/L (15-37); Alkaline Phosphatase 122 U/L (46-116); Anion Gap 6.2 mmol/L (3-11); BUN 15 mg/dL (7-18); Bilirubin, Total 2.33 mg/dL (0.2-1.0); CO2 30.8 mmol/L (21.0-32.0); CREATININE 1.2 mg/dL (0.70-1.30); Calcium 8.8 mg/dL (8.5-10.1); Calculated LDL 44 mg/dL (<100); Chloride 103 mmol/L (98-107); Cholesterol 117 mg/dL (<200); Estimated GFR 67.53 (mL/min/1.73m2); Glucose 119 mg/dL (74-106); HDL Cholesterol 37 mg/dL (40-60); Potassium 3.8 mmol/L (3.5-5.1); Sodium 140 mmol/L (136-145); TSH (W/Ref FT4) 1.05 uIU/mL (0.36-3.74); Total Protein 7.7 g/dL (6.4-8.2); Triglyceride 181 mg/dL (<150)
[2024-11-02 21:25] LABS: PSA, Screening 2.2 ng/mL (<=4.5)
== END 2024-11-01 04:06 | disposition home or self-care (01) ==
PROVIDERS: PCP Nurse Practitioner Family; Visit Provider Nurse Practitioner Family
DX: Z00.00 Encounter for general adult medical examination without abnormal findings (principal); I10 Essential (primary) hypertension; E78.5 Hyperlipidemia, unspecified; E11.9 Type 2 diabetes mellitus without complications; E03.9 Hypothyroidism, unspecified; K21.9 Gastro-esophageal reflux disease without esophagitis; G47.33 Obstructive sleep apnea (adult) (pediatric); Z12.5 Encounter for screening for malignant neoplasm of prostate
CPT/HCPCS: 36415; 80053; 80061; 84153; 85027; 84443

== ENCOUNTER 2024-11-22 01:42 | Outpatient (CLI) | payer BC, SELFPAY ==
--- NOTE | 2024-11-22 08:00 | DI.MRI_ITS ---
Exam(s) MR UPPER JOINT RT WO EXAM: MR UPPER JOINT RT WO CLINICAL HISTORY: R SHOULDER PAIN,RT ROTATOR CUFF TEAR,M75.101 TECHNIQUE: Multiplanar multisequence MRI of the shoulder was performed. COMPARISON: CR,XR XR SHOULDER RT COMPLETE 2+V from 09/30/2024 FINDINGS: MARROW:There is no evidence of fracture, Hill-Sachs deformity, nor ominous osseous lesions. GLENOHUMERAL JOINT: No prominent joint effusion nor obvious loose intra-articular bodies. Some fluid is seen in the subcoracoid recess. No prominent chondral defects. No osteophytes. No degenerative subarticular cysts. ROTATOR CUFF MECHANISM: AC JOINT/ACROMIUM: There is significant degenerative change in the AC joint, including downgoing oste ophytes which are causing impingement upon the supraspinatus.. There is no evidence of os acromiale. Supraspinatus: There is tendinosis in the supraspinatus tenting and an area of full-thickness tearing in the anterior aspect of the supraspinatus tendon, this just above the anterior aspect of the great er tuberosity. The AP dimension of the tear is 0.6 cm with continuity of fluid signal seen between t he joint space and the subacromial space through this tear, this best appreciated on the fat sat sagi ttal images (T2 FS sagittal image 9). Infraspinatus: Intact. No evidence of tear nor muscle atrophy. Teres Minor: Intact. No evidence of tear nor muscle atrophy. Subscapularis/anterior cuff: Mild increased signal. No high-grade tear. BICEPS TENDON: Exhibits normal position within the intertubercular groove. No evidence of tear. The re is a minimal amount of fluid in the biceps tendon sheath. LABRUM: There is no abnormal signal in the superior labrum posterior to the biceps insertion site. T he posterior labrum is also intact. Anterior and anterior-inferior labrum appears intact. Inferior labrum appears intact. QUADRILATERAL SPACE: No evidence of mass in the region of the axillary nerve and dorsal circumflex hu meral vessels. Visualized triceps muscle at this level appears unremarkable. IMPRESSION: 1. Main finding here is a full-thickness tear in the anterior aspect of the rotator cuff supraspinatu s tendon just above the greater tuberosity, as described above. There is no retraction of the muscul otendinous junction. 2. There is significant degenerative change at the AC joint level with downgoing osteophytes causing impingement upon the supraspinatus/rotator cuff mechanism. 3. Some fluid is seen in the subcoracoid recess. There is, however, no large joint effusion and ther e are no loose intra-articular bodies. There is a sliver of fluid in subacromial space related to th e full-thickness supraspinatus tear. 4. There is no evidence of labral tear nor biceps tendon tear. DATA REPOSITORY:
== END 2024-11-22 02:02 ==
LOC: DI 01:42
PROVIDERS: PCP Nurse Practitioner Family; Visit Provider Student in an Organized Health Care Education/Training Program
DX: M75.111 Incomplete rotator cuff tear or rupture of right shoulder, not specified as traumatic (principal)
CPT/HCPCS: 73221

== ENCOUNTER 2025-04-24 10:11 | Outpatient (REF) | payer BC, MEDICARE, SELFPAY ==
--- NOTE | 2025-04-24 08:52 | SKI_PTH ---
PATIENT: Theodore Mc LOC: [facility] U#:[id number] AGE/SX: 64/M ROOM: RE04/24/[address]: Leticia White NP : 1960 BED: DIS: 04/24/2025 SPEC #: [id number] RECD: 04/24/25 13:04 STATUS: JESSY BARRETT #: [id number] MARIANA: 04/24/25 08:[address]: Leticia White DEPT: Surgical Specimen RECD BY: Zoe Lambert Tissues: 1 - SKIN BIOPSY(SHAVE/PUNCH) Procedures: SKIN LEVEL 4 Comments: [id number]
== END 2025-04-24 10:12 | disposition home or self-care (01) ==
LOC: LBN 10:11
PROVIDERS: PCP Nurse Practitioner Family; Visit Provider Nurse Practitioner Family
DX: R21 Rash and other nonspecific skin eruption (principal); L30.8 Other specified dermatitis
CPT/HCPCS: 88305

== ENCOUNTER 2025-07-27 06:11 | Day surgery (SDC) | payer BC, SELFPAY ==
[2025-07-27 06:25] VITALS: BP 123/78; PULSE 74; RESP 14; TEMP 36.5; O2SAT 95
[2025-07-27] MEDS: Tropicam./Phenyleph. (1/2.5%) 5 ML BTL OS ×3 (06:33→06:49)
--- NOTE | 2025-07-27 07:09 | W.ANESPRE ---
General Info Date of Service Date Performed: 07/27/25 Height: 5 ft 8.5 in Weight: 116 kg Body Mass Index (BMI): 38.3 Surgical Procedure: Operation Date: 07/27/25 07:40 Proposed Procedure Side Surgeon p Cataract Extraction with IOL Implant Left Juan Jose Reddy MD Meds Allergies and Home Medications Allergies Allergy/AdvReac Type Severity Reaction Status Date / Time niacin Allergy Intermediate Rash Verified 07/27/25 06:36 hydrocodone Allergy Mild Skin Rash Verified 07/27/25 06:36 hydrochlorothiazide AdvReac Severe pancreatiti Verified 07/27/25 06:36 s amlodipine AdvReac Intermediate edema Verified 07/27/25 06:36 ramipril AdvReac Intermediate cough Verified 07/27/25 06:36 spironolactone AdvReac Mild Unknown Verified 07/27/25 06:36 Home Medication ?Medication ?Instructions ?Recorded acetaminophen 325 mg tablet 1 - 2 tab PO Q4H PRN 01/06/13 multivitamin 1 tab PO DAILY 01/06/13 omega-3 fatty acids-fish oil 340 1 cap PO BID 01/06/13 mg-1,000 mg capsule (Fish Oil) vitamin B complex 1 tab PO DAILY 01/06/13 lancets 33 gauge (OneTouch Delica #90 ea 12/01/16 Lancets) ferrous sulfate 325 mg (65 mg See Rx Instructions PO .COMPLEX 05/21/20 iron) tablet blood sugar diagnostic (RollUp MediaTouch #90 strips 09/23/21 Ultra Test strips) carvedilol 6.25 mg tablet 6.25 mg PO BID 09/30/24 atorvastatin 80 mg tablet 80 mg PO DAILY #90 tabs 10/09/24 omeprazole 20 mg capsule,delayed 20 mg PO DAILY #90 caps 10/09/24 release furosemide 40 mg tablet 40 mg PO QAM #90 tabs 10/18/24 felodipine 2.5 mg tablet,extended 2.5 mg .Route DAILY #90 tabs 06/05/25 release 24 hr semaglutide 2 mg/dose (8 mg/3 mL) 2 mg (0.75 mL) subcut QWEEK #3 mL 06/05/25 subcutaneous pen injector levothyroxine 150 mcg tablet 150 mcg PO DAILY #90 tab-caps 07/19/25 vardenafil 10 mg tablet 10 mg PO DAILY PRN sexual activity 07/19/25 #20 tabs Current Visit Medications: Current Medications Generic Name Dose Route Start Last Admin Trade Name Alvinq PRN Reason Stop Dose Admin Acetaminophen 1,000 mg 07/27/25 06:00 Acetaminophen 500 Mg Tab PO 08/26/25 05:59 Q4H PRN PRN Balanced Salt Solution 500 ml 07/27/25 06:00 Balanced Salt Soln.-Plus 500 Ml Bag OP 08/26/25 05:59 DIRECTED GARTH Miscellaneous Medication 0 ml 07/27/25 06:00 Prednisolone 1%, Moxifloxacin 0.5%, Bromfenac 0.09% 5.6ml Btl OS 08/26/25 05:59 DIRECTED GARTH Miscellaneous Medication 0 ml 07/27/25 06:00 07/27/25 06:49 Tropicam./Phenyleph. (1/2.5%) 5 Ml Btl OS 08/26/25 05:59 1 drp DIRECTED GARTH Administration Tetracaine HCl 0 ml 07/27/25 06:00 Tetracaine 0.5% 4 Ml Btl OS 08/26/25 05:59 DIRECTED GARTH PFSH Active Problems Active Problems: Problem Status Onset Code Cortical age-related cataract, left eye Acute H25.012 Nuclear age-related cataract, left eye Acute H25.12 Rotator cuff tear, right Acute M75.101 House dust mite allergy Acute Z91.09 Recurrent simple right inguinal hernia Acute K40.91 Left inguinal hernia Acute K40.90 Schamberg's purpura Acute ~12/2022 L81.7 Actinic keratosis Acute ~12/2022 L57.0 Sciatica Acute M54.30 Thyroglossal duct cyst Acute 17 Q89.2 Tubular adenoma of colon Acute 02/11/18 D12.6 Portal hypertension with esophageal varices Acute 03/18/18 K76.6, I85.00 Obstructive sleep apnea syndrome Chronic G47.33 Hypothyroidism Acute E03.9 Hyperlipidemia Acute E78.5 Heavy alcohol consumption Resolved 04/27/18 Z78.9 GERD (gastroesophageal reflux disease) Acute K21.9 Gastric motor function disorder Acute K31.89 Essential hypertension Acute 09/18/13 I10 Cirrhosis of liver with ascites Acute 04/27/18 K74.60, R18.8 Atherosclerosis of [place] coronary artery of [place] heart Acute 09/02/98 I25.10 Anemia Acute 03/18/16 D64.9 Diabetes type 2, controlled Chronic E11.9 Medical History Medical History GI bleed Anemia Anemia Surgical History Surgical History History of right inguinal hernia repair (~2009) Stent placement (~1998) RCA X 1 (1998) Repair of umbilical hernia (07/23/16) [facility] EGD - MAC (02/11/18) Colonoscopy - MAC (02/11/18) Tobacco Smoking/Tobacco Use Status: Never Passive smoking exposure: Yes Second hand exposure: Yes Alcohol Alcohol Intake: former Substance Use Substance use: Never Substance use type: does not use Vital Signs and Lab Results Vital Signs Most Recent Vital Signs in EMR: Most Recent Vital Signs Temp Pulse Resp BP Pulse Ox 36.5 C 74 14 123/78 95 07/27/25 06:25 07/27/25 06:25 07/27/25 06:25 07/27/25 06:25 07/27/25 06:25 Point of Care Results Point of Care Results: Finger Stick Blood Glucose 137 07/27/25 06:43 Anesthesia Assessment and Plan Anesthesia History Personal History: No History of Anesthesia Complications Family History: No Family History of Anesthesia Complications Exercise Tolerance Exercise Tolerance: Metabolic Equivalents>4 Pertinent Negatives Pertinent Negatives: No Symptoms of GERD Cardiac & Pulmonary Exam Cardiac Exam: Normal S1/S2 Heart Sounds Pulmonary Exam: Clear Bilateral Breath Sounds Implantable Cardiac Device Does patient have a Pacemaker or an ICD?: No Airway Exam Known Difficult Airway: No Mallampati Class: 2 Mouth Opening: Normal (> 3cm) Thyromental Distance: Greater than 3 cm Neck Range of Motion: Full ROM Neck Circumference: Normal Teeth Condition: Normal Dentition ASA Classification ASA Score: ASA 2 Emergency Case?: No NPO Status NPO Status: NPO Clears >2 hours, Solids >8 hours Anesthesia Plan Resuscitation Status: Full Code Anesthesia Technique: MAC Anesthesia Airway Planned: Natural Airway Monitors Used: Standard Monitors
[2025-07-27 07:12] VITALS: BMI 38.3
[2025-07-27] MEDS: Tetracaine 0.5% 4 ML BTL OS (07:29)
[2025-07-27] MEDS: Povidone-Iodine Ophth 30 ML BTL (07:29)
[2025-07-27] MEDS: Balanced Salt Soln.-PLUS 500 ML BAG OP (07:35)
[2025-07-27] MEDS: Lidocaine 1% Pres-Free 5 ML VIAL (07:35)
[2025-07-27] MEDS: Phenylephrine/Lidocaine (15/10) MG/ML 1 ML VIAL (07:36)
[2025-07-27] MEDS: Duovisc Viscoelastic System EACH 1 EACH (07:38)
[2025-07-27] MEDS: Prednisolone 1%, Moxifloxacin 0.5%, Bromfenac 0.09% 5.6ML BTL OS (07:40)
[2025-07-27] MEDS: Moxifloxacin-PF 1 MG/ML VIAL (07:40)
[2025-07-27 08:09] VITALS: BP 112/68; PULSE 77; RESP 14; TEMP 36.6; O2SAT 95
--- NOTE | 2025-07-27 08:10 | ROE_ITS ---
Operative Note Operative Note PRE-OP DIAGNOSIS: Nuclear/cortical cataract, left eye POST-OP DIAGNOSIS: same PROCEDURE: Cataract extraction using phacoemulsification with intraocular lens implant, left eye SURGEON: Juan Jose Reddy ANESTHESIA TYPE: Local By Surgeon and MAC Refer to Anesthesia Record PATHOLOGY: none sent COMPLICATIONS: None Patient was transported to: same day Patient's condition: stable Implants: Av [place] [id number] Indications: Progressive decreased vision due to cataract, left eye Procedure Description: CATARACT SURGERY OPERATIVE REPORT PREOPERATIVE DIAGNOSIS: Nuclear/cortical cataract, left eye POSTOPERATIVE DIAGNOSIS: Same OPERATION: Cataract extraction using phacoemulsification with posterior chamber intraocular lens implant, left eye. IOL: IOL Emergency Management Consultant/Model: Av [place] [id number] IOL Power: + 19.5 diopters IOL Serial Number: [id number] Optic Diameter: 6.0mm Haptic/Overall Diameter: 13.0mm PHACO INFO: Av [employer] Vision System with OZil and Active Fluidics Cumulative Dispersed Energy (CDE): 9.69 seconds SURGEON: Juan Jose Reddy MD, LACIE ANESTHESIA: Monitored Anesthesia Care (MAC), with local sub-tenon's anesthetic infiltration COMPLICATIONS: None SPECIMENS: None INDICATIONS FOR PROCEDURE: The patient is a 64-year-old male with history of diminished visual acuity in his left eye secondary to the development of nuclear/cortical cataract. He is significantly symptomatic that he desires cataract surgery and attempt to improve and maximize his vision. The option of cataract surgery was offered to the patient and he wished to proceed. See office notes for detailed information. PROCEDURE: The correct surgical eye was identified and marked as the left eye and the pupil was dilated in the preoperative area using mydriatics and cycloplegics. The dilated pupil size was 7.0 mm. Oral sedation was administered in the form of an Imprimis MKO Melt (midazolam 3mg/ketamine 25mg/ondansetron 2mg). The patient elected to proceed without oral sedation. The patient was brought to the operating room where cardiopulmonary monitoring was instituted and surgical time-out was performed, confirming the correct operative eye and IOL power. Topical anesthesia was administered and ophthalmic povidone-iodine 5% was instilled into the conjunctival fornices. The heath-ocular area was prepped with Betadine 10% solution and draped in the usual sterile fashion for intraocular surgery, including an aperture drape. A Tegaderm transparent film dressing was cut in half and used to cover the lashes and lid margins. Care was taken to sequester the lashes and lid margins under the Tegaderm dressing. A lid speculum was placed between the lids of the operative eye and the Av LuxOR Revalia operating microscope was maneuvered into position. Minerva scissors were then used to make a conjunctival buttonhole approximately 6mm posterior to the limbus in the inferonasal quadrant. Blunt dissection was carried out to expose bare sclera, and a blunt-tipped sub-tenon?s anesthesia cannula was introduced and passed posteriorly along the globe where non- preserved plain lidocaine was injected into posterior sub-Tenon?s space. A sideport knife was used to make a paracentesis port. Intraocular phenylephrine/lidocaine was injected into the anterior chamber. The anterior chamber was then filled with viscoelastic. A keratome knife was used construct a two-plane clear corneal tunnel extending 2.0mm into clear cornea. A flap was raised on the anterior capsule and capsulorhexis forceps were used to complete a continuous curvilinear capsulorhexis of 5.0 mm. Balanced salt solution was then used to perform cortical cleaving hydro dissection and nuclear hydrodelineation until the lens could be freely rotated within the capsular bag. The lens nucleus was then disassembled and removed within the capsular bag and iris plane using phacoemulsification. Residual cortical material was removed using the irrigation/aspiration handpiece. The posterior capsule was carefully polished to remove as much residual lens epithelial cells as safely possible. The capsular bag was then inflated and the anterior chamber deepened with viscoelastic. The lens implant described above was inserted into the capsular bag using the Av Auton[employer] Injector. A Kuglen hook was used to dial the IOL into position. Residual viscoelastic was then removed first from posterior to the IOL, then from the anterior chamber using the I/A handpiece. The lens implant was noted to center nicely within the capsular bag. The incisions were stromally hydrated, and the anterior chamber was reformed using BSS. Then 0.5cc of moxifloxacin 1.0mg/ml were injected into the capsular bag and anterior chamber. The incisions were checked with a Weck spear and found to be secure. Several drops of ophthalmic povidone-iodine 5% were then applied to the eye followed by two drops of combination steroid/NSAID/antibiotic solution. The drapes were removed and a clear plastic protective eye shield was placed over the eye. The patient was then returned to Same Day Surgery in stable condition. Date of Procedure: 07/27/25
--- NOTE | 2025-07-27 08:10 | W.PM.DSUDISC ---
Date of service: 07/27/25 Discharge Plan Disposition Patient Disposition: Home Discharge Details Attending Provider: Juan Jose Reddy Primary Care Provider: Leticia White Home Meds and New Rx's Prescriptions: No Action ferrous sulfate 325 mg (65 mg iron) tablet See Rx Instructions PO .COMPLEX Patient Comments: 1 tab PO every other day; Rx Instructions: Daily. -hb (DME) OneTouch Ultra Test Strip 1 ea Miscellaneous DAILY Qty: 90 4RF Rx Instructions: test daily carvedilol 6.25 mg tablet 6.25 mg PO BID Rx Instructions: must administer with a meal/food multivitamin 1 EACH tablet 1 tab PO DAILY acetaminophen 325 MG tablet 1 - 2 tab PO Q4H PRN Patient Comments: uses prn vitamin B complex 1 EACH tablet 1 tab PO DAILY Fish Oil 1 EACH capsule 1 cap PO BID (DME) lancets [OneTouch Delica Lancets] 1 EACH misc 1 ea Miscellaneous DAILY Qty: 90 atorvastatin 80 mg tablet 80 mg PO DAILY Qty: 90 3RF omeprazole 20 mg capsule,delayed release(DR/EC) 20 mg PO DAILY Qty: 90 3RF furosemide 40 mg tablet 40 mg PO QAM Qty: 90 3RF felodipine 2.5 mg tablet extended release 24 hr 2.5 mg .ROUTE DAILY Qty: 90 3RF Rx Instructions: 2.5 mg daily; semaglutide 2 mg/dose (8 mg/3 mL) pen injector 2 mg subcut QWEEK Qty: 3 3RF levothyroxine 150 mcg tablet 150 mcg PO DAILY Qty: 90 3RF vardenafil 10 mg tablet 10 mg PO DAILY PRN (Reason: sexual activity) Qty: 20 3RF Rx Instructions: Take 30 minutes to 1 hour before sexual activity Discharge Instructions Stand Alone Forms: DSU Post-Op CataractCamilla (DSU) Discharge Orders Discharge Orders: Discharge Order (Routine); Ordered 07/27/25 Ordered By: Juan Jose Reddy DS: Diagnosis Discharge Diagnosis (1) Cortical age-related cataract, left eye: Status: Resolved (2) Nuclear age-related cataract, left eye: Status: Resolved
[2025-07-27 08:28] VITALS: BP 118/85; PULSE 66; RESP 16; TEMP 36.6; O2SAT 97
--- NOTE | 2025-07-27 08:28 | W.ANESPOSTOP ---
Postoperative Evaluation Date, Time and Location Date Performed: 07/27/25 Time Performed: 08:23 Patient Location: Day Surgery Unit Vital Signs Most Recent Imported Vital Signs: Most Recent Vital Signs Temp Pulse Resp BP Pulse Ox 36.6 C 77 14 112/68 95 07/27/25 08:09 07/27/25 08:09 07/27/25 08:09 07/27/25 08:09 07/27/25 08:09 Pain Score Most Recent Pain Score: Most Recent Pain Score Pain Level 0 07/27/25 08:09 Assessment Mental Status: Awake (Alert & Oriented to Patient Baseline) Airway and Respiratory Function: Patent airway with normal (patient baseline) respiratory exam Cardiovascular Function: Hemodynamically Stable Hydration Status: Adequately Hydrated Nausea & Vomiting: No Nausea or Vomiting Pain: Pt. Denies Any Pain Peripheral Nerve Block: Patient did not receive a nerve block
== END 2025-07-27 08:36 | disposition home or self-care (01) ==
PROVIDERS: PCP Nurse Practitioner Family; Visit Provider Ophthalmology
PROC: (CPT 66984; principal; 2025-07-27 07:30)
DX: H25.12 Age-related nuclear cataract, left eye (principal); H25.012 Cortical age-related cataract, left eye; G47.33 Obstructive sleep apnea (adult) (pediatric); K21.9 Gastro-esophageal reflux disease without esophagitis; I25.10 Atherosclerotic heart disease of native coronary artery without angina pectoris
CPT/HCPCS: 66984; 00123; V2632; J2003

== ENCOUNTER 2025-08-03 09:08 | Day surgery (SDC) | payer BC, MEDICARE, SELFPAY ==
[2025-08-03] MEDS: Tropicam./Phenyleph. (1/2.5%) 5 ML BTL OD ×3 (09:06→09:43)
[2025-08-03 09:23] VITALS: BP 108/73; PULSE 75; RESP 18; TEMP 36.4; O2SAT 95
--- NOTE | 2025-08-03 10:02 | W.ANESPRE ---
General Info Date of Service Date Performed: 08/03/25 Height: 5 ft 8.5 in Weight: 114.6 kg Body Mass Index (BMI): 37.8 Surgical Procedure: Operation Date: 08/03/25 11:40 Proposed Procedure Side Surgeon p Cataract Extraction with IOL Implant Right Juan Jose Reddy MD Meds Allergies and Home Medications Allergies Allergy/AdvReac Type Severity Reaction Status Date / Time niacin Allergy Intermediate Rash Verified 08/03/25 09:37 hydrocodone Allergy Mild Skin Rash Verified 08/03/25 09:37 hydrochlorothiazide AdvReac Severe pancreatiti Verified 08/03/25 09:37 s amlodipine AdvReac Intermediate edema Verified 08/03/25 09:37 ramipril AdvReac Intermediate cough Verified 08/03/25 09:37 spironolactone AdvReac Mild Unknown Verified 08/03/25 09:37 Home Medication Medication Instructions Recorded acetaminophen 325 mg tablet 1 - 2 tab PO Q4H PRN 01/06/13 multivitamin 1 tab PO DAILY 01/06/13 omega-3 fatty acids-fish oil 340 1 cap PO BID 01/06/13 mg-1,000 mg capsule (Fish Oil) vitamin B complex 1 tab PO DAILY 01/06/13 lancets 33 gauge ([employer] Delica #90 ea 12/01/16 Lancets) ferrous sulfate 325 mg (65 mg See Rx Instructions PO .COMPLEX 05/21/20 iron) tablet blood sugar diagnostic ([employer] #90 strips 09/23/21 Ultra Test strips) carvedilol 6.25 mg tablet 6.25 mg PO BID 09/30/24 atorvastatin 80 mg tablet 80 mg PO DAILY #90 tabs 10/09/24 omeprazole 20 mg capsule,delayed 20 mg PO DAILY #90 caps 10/09/24 release furosemide 40 mg tablet 40 mg PO QAM #90 tabs 10/18/24 felodipine 2.5 mg tablet,extended 2.5 mg .Route DAILY #90 tabs 06/05/25 release 24 hr semaglutide 2 mg/dose (8 mg/3 mL) 2 mg (0.75 mL) subcut QWEEK #3 mL 06/05/25 subcutaneous pen injector levothyroxine 150 mcg tablet 150 mcg PO DAILY #90 tab-caps 07/19/25 vardenafil 10 mg tablet 10 mg PO DAILY PRN sexual activity 07/19/25 #20 tabs Current Visit Medications: Current Medications Generic Name Dose Route Start Last Admin Trade Name Clau PRN Reason Stop Dose Admin Acetaminophen 1,000 mg 08/03/25 06:00 Acetaminophen 500 Mg Tab PO 09/02/25 05:59 Q4H PRN PRN Balanced Salt Solution 500 ml 08/03/25 06:00 Balanced Salt Soln.-Plus 500 Ml Bag OP 09/02/25 05:59 DIRECTED GARTH Miscellaneous Medication 0 ml 08/03/25 06:00 Prednisolone 1%, Moxifloxacin 0.5%, Bromfenac 0.09% 5.6ml Btl OD 09/02/25 05:59 DIRECTED GARTH Miscellaneous Medication 0 ml 08/03/25 06:00 08/03/25 09:43 Tropicam./Phenyleph. (1/2.5%) 5 Ml Btl OD 09/02/25 05:59 1 drp DIRECTED GARTH Administration Tetracaine HCl 0 ml 08/03/25 06:00 Tetracaine 0.5% 4 Ml Btl OD 09/02/25 05:59 DIRECTED GARTH PFSH Active Problems Active Problems: Problem Status Onset Code Cortical age-related cataract, right eye Acute H25.011 Nuclear age-related cataract, right eye Acute H25.11 Cortical age-related cataract, left eye Resolved H25.012 Nuclear age-related cataract, left eye Resolved H25.12 Rotator cuff tear, right Acute M75.101 House dust mite allergy Acute Z91.09 Recurrent simple right inguinal hernia Acute K40.91 Left inguinal hernia Acute K40.90 Schamberg's purpura Acute ~12/2022 L81.7 Actinic keratosis Acute ~12/2022 L57.0 Sciatica Acute M54.30 Thyroglossal duct cyst Acute 04/15/17 Q89.2 Tubular adenoma of colon Acute 02/11/18 D12.6 Portal hypertension with esophageal varices Acute 03/18/18 K76.6, I85.00 Obstructive sleep apnea syndrome Chronic G47.33 Hypothyroidism Acute E03.9 Hyperlipidemia Acute E78.5 Heavy alcohol consumption Resolved 04/27/18 Z78.9 GERD (gastroesophageal reflux disease) Acute K21.9 Gastric motor function disorder Acute K31.89 Essential hypertension Acute 09/18/13 I10 Cirrhosis of liver with ascites Acute 04/27/18 K74.60, R18.8 Atherosclerosis of [place] coronary artery of [place] heart Acute 09/02/98 I25.10 Anemia Acute 03/18/16 D64.9 Diabetes type 2, controlled Chronic E11.9 Medical History Medical History GI bleed Anemia Anemia Surgical History Surgical History History of right inguinal hernia repair (~2009) Stent placement (~1998) RCA X 1 (1998) Repair of umbilical hernia (07/23/16) [facility] EGD - MAC (02/11/18) Colonoscopy - MAC (02/11/18) Tobacco Smoking/Tobacco Use Status: Never Passive smoking exposure: Yes Second hand exposure: Yes Alcohol Alcohol Intake: former Substance Use Substance use: Never Substance use type: does not use Vital Signs and Lab Results Vital Signs Most Recent Vital Signs in EMR: Most Recent Vital Signs Temp Pulse Resp BP Pulse Ox 36.4 C L 75 18 108/73 95 08/03/25 09:23 08/03/25 09:23 08/03/25 09:23 08/03/25 09:23 08/03/25 09:23 Point of Care Results Point of Care Results: Finger Stick Blood Glucose 136 08/03/25 09:32 Imaging and Studies Imaging and Studies Study information below may be from another EMR and interpreted by another provider. Please see original notes in EMR for more complete details. Stress Test Summary: 03/27:MPI Conclusion Myocardial perfusion is normal. There is no ischemia or evidence of prior infarction EF 57%, normal wall motion Anesthesia Assessment and Plan Anesthesia History Personal History: No History of Anesthesia Complications Family History: No Family History of Anesthesia Complications Exercise Tolerance Exercise Tolerance: Metabolic Equivalents>4 Pertinent Negatives Pertinent Negatives: No Symptoms of GERD Cardiac & Pulmonary Exam Cardiac Exam: Normal S1/S2 Heart Sounds Pulmonary Exam: Clear Bilateral Breath Sounds Implantable Cardiac Device Does patient have a Pacemaker or an ICD?: No Airway Exam Known Difficult Airway: No Mallampati Class: 2 Mouth Opening: Normal (> 3cm) Thyromental Distance: Greater than 3 cm Neck Range of Motion: Full ROM Neck Circumference: Normal Teeth Condition: Normal Dentition ASA Classification ASA Score: ASA 3 Emergency Case?: No NPO Status NPO Status: NPO Clears >2 hours, Solids >8 hours Anesthesia Plan Resuscitation Status: Full Code Anesthesia Technique: MAC Anesthesia Airway Planned: Natural Airway Monitors Used: Standard Monitors
[2025-08-03 10:03] VITALS: BMI 37.8
[2025-08-03] MEDS: Tetracaine 0.5% 4 ML BTL OD (10:40)
[2025-08-03] MEDS: Povidone-Iodine Ophth 30 ML BTL (10:40)
[2025-08-03] MEDS: Duovisc Viscoelastic System EACH 1 EACH (10:45)
[2025-08-03] MEDS: Phenylephrine/Lidocaine (15/10) MG/ML 1 ML VIAL (10:46)
[2025-08-03] MEDS: Lidocaine 1% Pres-Free 5 ML VIAL (10:46)
[2025-08-03] MEDS: Balanced Salt Soln.-PLUS 500 ML BAG OP (10:47)
[2025-08-03] MEDS: Moxifloxacin-PF 1 MG/ML VIAL (11:03)
[2025-08-03] MEDS: Prednisolone 1%, Moxifloxacin 0.5%, Bromfenac 0.09% 5.6ML BTL OD (11:04)
[2025-08-03 11:10] VITALS: BP 112/79; PULSE 72; RESP 14; TEMP 36.6; O2SAT 95
--- NOTE | 2025-08-03 11:14 | ROE_ITS ---
Operative Note Operative Note PRE-OP DIAGNOSIS: Nuclear/cortical cataract, right eye POST-OP DIAGNOSIS: same PROCEDURE: Cataract extraction using phacoemulsification with intraocular lens implant, right eye SURGEON: Juan Jose Reddy ANESTHESIA TYPE: Local By Surgeon and MAC Refer to Anesthesia Record PATHOLOGY: none sent COMPLICATIONS: None Patient was transported to: same day Patient's condition: stable Implants: Av [employer] [id number] Indications: Progressive decreased vision due to cataract, right eye Procedure Description: CATARACT SURGERY OPERATIVE REPORT PREOPERATIVE DIAGNOSIS: Nuclear/cortical cataract, right eye POSTOPERATIVE DIAGNOSIS: Same OPERATION: Cataract extraction using phacoemulsification with posterior chamber intraocular lens implant, right eye. IOL: IOL [employer] Signal [employer] Switch Operator/Model: Av [place] [id number] IOL Power: + 19.0 diopters IOL Serial Number: [id number] Optic Diameter: 6.0mm Haptic/Overall Diameter: 13.0mm PHACO INFO: Av [employer] Vision System with OZil and Active Fluidics Cumulative Dispersed Energy (CDE): 6.97 seconds SURGEON: Juan Jose Reddy MD, LACIE ANESTHESIA: Monitored Anesthesia Care (MAC), with local sub-tenon's anesthetic infiltration COMPLICATIONS: None SPECIMENS: None INDICATIONS FOR PROCEDURE: The patient is a 64-year-old male with history of diminished visual acuity in both eyes secondary to the development of bilateral nuclear/cortical cataract. He has already undergone cataract surgery in the left eye and is doing well postoperatively. He now presents for cataract surgery in the right eye. See office notes for detailed information. PROCEDURE: The correct surgical eye was identified and marked as the left eye and the pupil was dilated in the preoperative area using mydriatics and cycloplegics. The dilated pupil size was 6.0 mm. Oral sedation was administered in the form of an Imprimis MKO Melt (midazolam 3mg/ketamine 25mg/ondansetron 2mg). The patient was brought to the operating room where cardiopulmonary monitoring was instituted and surgical time-out was performed, confirming the correct operative eye and IOL power. Topical anesthesia was administered and ophthalmic povidone-iodine 5% was instilled into the conjunctival fornices. The heath-ocular area was prepped with Betadine 10% solution and draped in the usual sterile fashion for intraocular surgery, including an aperture drape. A Tegaderm transparent film dressing was cut in half and used to cover the lashes and lid margins. Care was taken to sequester the lashes and lid margins under the Tegaderm dressing. A lid speculum was placed between the lids of the operative eye and the Av Lux[employer] Revalia operating microscope was maneuvered into position. Minerva scissors were then used to make a conjunctival buttonhole approximately 6mm posterior to the limbus in the inferonasal quadrant. Blunt dissection was carried out to expose bare sclera, and a blunt-tipped sub-tenon’s anesthesia cannula was introduced and passed posteriorly along the globe where non- preserved plain lidocaine was injected into posterior sub-Tenon’s space. A sideport knife was used to make a paracentesis port. Intraocular phenylephrine/lidocaine was injected into the anterior chamber. The anterior chamber was then filled with viscoelastic. A keratome knife was used construct a two-plane clear corneal tunnel extending 2.0mm into clear cornea. A flap was raised on the anterior capsule and capsulorhexis forceps were used to complete a continuous curvilinear capsulorhexis of 5.0 mm. Balanced salt solution was then used to perform cortical cleaving hydrodissection and nuclear hydrodelineation until the lens could be freely rotated within the capsular bag. The lens nucleus was then disassembled and removed within the capsular bag and iris plane using phacoemulsification. Residual cortical material was removed using the irrigation/aspiration handpiece. The posterior capsule was carefully polished to remove as much residual lens epithelial cells as safely possible. The capsular bag was then inflated and the anterior chamber deepened with viscoelastic. The lens implant described above was inserted into the capsular bag using the Av [employer] Injector. A Kuglen hook was used to dial the IOL into position. Residual viscoelastic was then removed first from posterior to the IOL, then from the anterior chamber using the I/A handpiece. The lens implant was noted to center nicely within the capsular bag. The incisions were stromally hydrated, and the anterior chamber was reformed using BSS. Then 0.5cc of moxifloxacin 1.0mg/ml were injected into the capsular bag and anterior chamber. The incisions were checked with a Weck spear and found to be secure. Several drops of ophthalmic povidone-iodine 5% were then applied to the eye followed by two drops of combination steroid/NSAID/antibiotic solution. The drapes were remove d and a clear plastic protective eye shield was placed over the eye. The patient was then returned to Same Day Surgery in stable condition. Date of Procedure: 08/03/25
--- NOTE | 2025-08-03 11:14 | W.PM.DSUDISC ---
Date of service: 08/03/25 Discharge Plan Disposition Patient Disposition: Home Discharge Details Attending Provider: Juan Jose Reddy Primary Care Provider: Leticia White Home Meds and New Rx's Prescriptions: No Action ferrous sulfate 325 mg (65 mg iron) tablet See Rx Instructions PO .COMPLEX Patient Comments: 1 tab PO every other day; Rx Instructions: Daily. -hb (DME) OneTouch Ultra Test Strip 1 ea Miscellaneous DAILY Qty: 90 4RF Rx Instructions: test daily carvedilol 6.25 mg tablet 6.25 mg PO BID Rx Instructions: must administer with a meal/food multivitamin 1 EACH tablet 1 tab PO DAILY acetaminophen 325 MG tablet 1 - 2 tab PO Q4H PRN Patient Comments: uses prn vitamin B complex 1 EACH tablet 1 tab PO DAILY Fish Oil 1 EACH capsule 1 cap PO BID (DME) lancets [OneTouch Delica Lancets] 1 EACH misc 1 ea Miscellaneous DAILY Qty: 90 atorvastatin 80 mg tablet 80 mg PO DAILY Qty: 90 3RF omeprazole 20 mg capsule,delayed release(DR/EC) 20 mg PO DAILY Qty: 90 3RF furosemide 40 mg tablet 40 mg PO QAM Qty: 90 3RF felodipine 2.5 mg tablet extended release 24 hr 2.5 mg .ROUTE DAILY Qty: 90 3RF Rx Instructions: 2.5 mg daily; semaglutide 2 mg/dose (8 mg/3 mL) pen injector 2 mg subcut QWEEK Qty: 3 3RF levothyroxine 150 mcg tablet 150 mcg PO DAILY Qty: 90 3RF vardenafil 10 mg tablet 10 mg PO DAILY PRN (Reason: sexual activity) Qty: 20 3RF Rx Instructions: Take 30 minutes to 1 hour before sexual activity Discharge Instructions Stand Alone Forms: DSU Post-Op CataractCamilla (DSU) Discharge Orders Discharge Orders: Discharge Order (Routine); Ordered 08/03/25 Ordered By: Juan Jose Reddy DS: Diagnosis Discharge Diagnosis (1) Cortical age-related cataract, right eye: Status: Resolved (2) Nuclear age-related cataract, right eye: Status: Resolved
[2025-08-03 11:39] VITALS: BP 117/83; PULSE 64; RESP 18; TEMP 35.8; O2SAT 96
--- NOTE | 2025-08-03 12:56 | W.ANESPOSTOP ---
Postoperative Evaluation Date, Time and Location Date Performed: 08/03/25 Time Performed: 11:45 Patient Location: Day Surgery Unit Vital Signs Most Recent Imported Vital Signs: Most Recent Vital Signs Temp Pulse Resp BP Pulse Ox 35.8 C L 64 18 117/83 96 08/03/25 11:39 08/03/25 11:39 08/03/25 11:39 08/03/25 11:39 08/03/25 11:39 Pain Score Most Recent Pain Score: Most Recent Pain Score Pain Level 1 08/03/25 11:39 Assessment Mental Status: Awake (Alert & Oriented to Patient Baseline) Airway and Respiratory Function: Patent airway with normal (patient baseline) respiratory exam Cardiovascular Function: Hemodynamically Stable Hydration Status: Adequately Hydrated Nausea & Vomiting: No Nausea or Vomiting Pain: Pain is tolerable per patient Peripheral Nerve Block: Patient did not receive a nerve block
== END 2025-08-03 11:47 | disposition home or self-care (01) ==
LOC: SUR 09:08
PROVIDERS: PCP Nurse Practitioner Family; Visit Provider Ophthalmology
PROC: (CPT 66984; principal; 2025-08-03 11:30)
DX: H25.011 Cortical age-related cataract, right eye (principal); H25.11 Age-related nuclear cataract, right eye; K21.9 Gastro-esophageal reflux disease without esophagitis; Z98.42 Cataract extraction status, left eye; E11.9 Type 2 diabetes mellitus without complications
CPT/HCPCS: 66984; 00123; V2632; J2003